=== PATIENT | female | born 1945 | race Caucasian/White ===

== ENCOUNTER 2016-07-10 17:56 | Inpatient (IN) ==
[2016-07-10] MEDS ORDERED: SODIUM CHLORIDE 0.9% 1,000 ML IV STA (18:17)
--- NOTE | 2016-07-10 18:22 | Emergency Department Note ---
Fabien Merino Brittany, am scribing for, and in the presence of, Dima Pond MD 18:17. Dejah Merino James D, MD, personally performed the services described in this documentation, ascribed by Alda Conn in my presence, and it is both accurate and complete 820 . Arrival - Arrival ED Nursing Triage Note: Patient arrived via ems with complaint of abdominal pain and nausea. Patient is alert and disoriented. Patient unable to answer questions. EMS reports this is a change. Patient unable to give any history. Patient was diagnosed with bowel obstruction at other hospital. Mode of Arrival: Stretcher Limitations: No Limitations Source: Patient, RN Notes Reviewed <Dima Pond - Last Filed: 07/10/16 18:52> <Manny Sands - Last Filed: 07/10/16 21:13> - Arrival Chief Complaint: Abdominal / Flank Pain Stated Complaint: bowel obstruction - History of Present Illness HPI Narrative: Patient is a 70 y/o white female presenting to the ED by EMS from [facility] for further evaluation of bowel obstruction. Patient has complaints of abdominal pain and nausea. In room is alert, but disoriented. Per EMS report this is a change in her mental status. History is limited due to patient being a poor historian. From nurse report patient was diagnosed with bowel obstruction at other facility. Dr. Forrester reported to us that patient had some abdominal distention. She reports history of hysterectomy. Brother is in room, states their mother on Friday and while at Home patient became sick. He reports that usually when she gets sick, she begins to have AMS. Patient is unsure as to when her last BM was. Patient's last impaction was around [place] and broken pelvis. She was taken to [facility], nothing was done, and states that now she has just recently been able to ambulate and utilize restroom pretty well till now. Patient has not had bowel movement in a while. Brother states that she has always had problems with bowel movements. Patient is unsure as to what date it is, she states "the year is 2014," and she is unsure as to what month it is. Brother reports Sepsis about a year ago. He reports prior to Friday patient was her norm, able to drive and do housework. No other complaint/pain in the ED. (Alda Conn) Patient is a 70 y/o white female presenting to the ED by EMS from [facility] for further evaluation of bowel obstruction. Patient has complaints of abdominal pain and nausea. In room is alert, but disoriented. Per EMS report this is a change in her mental status. History is limited due to patient being a poor historian. From nurse report patient was diagnosed with bowel obstruction at other facility. Dr. Forrester reported to us that patient had some abdominal distention. She reports history of hysterectomy. Brother is in room, states their mother on Friday and while at Home patient became sick. He reports that usually when she gets sick, she begins to have AMS. Patient is unsure as to when her last BM was. Patient's last impaction was around [place] and broken pelvis. She was taken to [facility], nothing was done, and states that now she has just recently been able to ambulate and utilize restroom pretty well till now. Patient has not had bowel movement in a while. Brother states that she has always had problems with bowel movements. Patient is unsure as to what date it is, she states "the year is 2014," and she is unsure as to what month it is. Brother reports Sepsis about a year ago. He reports prior to Friday patient was her norm, able to drive and do housework. No other complaint/pain in the ED. (Dima Pond) Allergies/Adverse Reactions: Allergies Allergy/AdvReac Type Severity Reaction Status Date / Time levofloxacin [From Levaquin] Allergy RASH Verified 08/15/15 10:12 Isyfyly-Azo-Gta Reductase AdvReac Confusion Verified 08/15/15 10:12 Inhibitor Home Medications: Home Medications Medication Instructions Recorded Confirmed Type Gabapentin [Neurontin] 800 mg PO BID 09/02/14 07/10/16 History Ranitidine Tab [Zantac Tab] 150 mg PO BID 09/02/14 07/10/16 History Estropipate 1 tablet PO DAILY 08/09/15 07/10/16 History Promethazine Tab [Phenergan Tab] 1 tablet PO Q4HR 08/09/15 07/10/16 History cloNIDine TAB [Catapres Tab] 0.1 mg PO BID PRN 08/09/15 07/10/16 History Arformoterol Neb [Brovana] 15 mcg RESP TX RT BID neb 08/20/15 07/10/16 Rx Magnesium Hydroxide Susp [Milk of 30 ml PO DAILY PRN #0 udcup 08/20/15 07/10/16 Rx Magnesia] Pantoprazole Tab [Protonix Tab] 40 mg PO DAILY tablet 08/20/15 07/10/16 Rx ALPRAZolam [Xanax] 1 mg PO TID PRN 07/10/16 07/10/16 History Albuterol Sulfate [Proair HFA] 2 puffs INH Q4H PRN 07/10/16 07/10/16 History Calcium (Carbonate) [Oscal 500] 500 mg PO BID PRN 07/10/16 07/10/16 History Duloxetine HCl [Duloxetine] 30 mg PO BEDTIME 07/10/16 07/10/16 History Furosemide Tab [Lasix Tab] 20 mg PO DAILY PRN 07/10/16 07/10/16 History Ibuprofen 200 mg PO Q8H PRN 07/10/16 07/10/16 History Metformin HCl [Metformin HCl] 500 mg PO BID 07/10/16 07/10/16 History Oxycodone HCl/Acetaminophen 1 each PO QID 07/10/16 07/10/16 History [Oxycodone-Acetaminophen 10-325] Umeclidinium Brm/Vilanterol Tr 1 puff INH DAILY 07/10/16 07/10/16 History [Anoro Ellipta] traZODone [Desyrel] 50 - 100 mg PO BEDTIME PRN 07/10/16 07/10/16 History Review of System - Review of System 12 point system: reviewed and no additional remarkable complaints except as stated - Review of System Respiratory: Present: respiratory distress Gastrointestinal: Present: constipation Neurological: Present: confusion <Dima Pond - Last Filed: 07/10/16 18:52> Medical,Surgical,& Family Hx - Medical History Cardio: History of: CAD, Hypertension No history of: Cardiac Dysrhythmia Comment Only: CHF (daughter thinks so but is not sure) Psychological: History of: Anxiety Disorders, Depression Neurology: History of: Peripheral Neuropathy (diabetic) No history of: Seizures Endocrine: History of: Diabetes Mellitus (NIDDM) Respiratory: History of: Bronchitis, COPD, Obstructive Sleep Apnea, Respiratory Problems (Left lower lobe of LUNG REMOVED) Genitourinary: History of: Recurring Urinary Tract Infections Gastrointestinal: History of: GERD, GI Problems (esophageal strictures requiring dilation in the past before 2005) Musculoskeletal: History of: Back/Neck Problems (treated at pain clinic), Musculoskeletal Problems (arthritis) Other: History of: Anaphylaxis - Surgical History Cardiac Surgeries: Sugical HX of: Cardiac Catheterization (two weeks ago by dr corona) HEENT Surgeries: Surgical HX of: Tonsilectomy & Adenoidectomy Abdominal Surgeries: Surgical HX of: Abdominal Surgery, Appendectomy Reproductive Surgeries: Surgical HX of;: Section, Genitourinary Surgery (bladder mesh tact), Hysterectomy Orthopedic Surgeries: Surgical HX of;: Implanted Devices - Family History Family History: Reports;: Family Cancer (father), Family Diabetes, Family Hypertension, Family Stroke Denies;: Family Heart Disease - Social History Smoking Status: Unknown if ever smoked Frequency of Alcohol Use: None Type of Drug Use: None <Dima Pond - Last Filed: 07/10/16 18:52> Exam <Dima Pond - Last Filed: 07/10/16 18:52> <Manny Sands - Last Filed: 07/10/16 21:13> Vital Signs: Vital Signs Temperature 98.5 F 07/10/16 17:57 Pulse Rate 96 H 07/10/16 19:00 Respiratory Rate 21 07/10/16 19:00 Blood Pressure 142/100 07/10/16 19:00 O2 Sat by Pulse Oximetry 100 07/10/16 19:00 GENERAL: This is a well-nourished well-developed white female chronically ill- appearing in no apparent distress. VITAL SIGNS: Reviewed HEENT: Head is atraumatic and normocephalic. Pupils are equal round react to light. Extraocular movements are intact. Oropharynx is benign with slightly dry mucous membranes. NECK: Neck is soft and supple without tenderness. There are no masses. There is no lymphadenopathy. LUNGS: Lungs are clear to auscultation. Chest rises symmetrically. There is no chest wall tenderness. CV: Heart is regular rate and rhythm without murmurs rubs or gallops. ABDOMEN: Abdomen is soft, minimal generalized tenderness to palpation without rebound or guarding. There are no abdominal abnormal masses palpated. There is no organomegaly. Bowel sounds are present and active. Rectal: Good rectal tone. No masses. Small amount of stool present in the vault which is heme negative. SKIN: Skin is warm and dry. No rash. EXTREMITIES: Patient has full range of motion without tenderness. There is no pedal edema. NEUROLOGIC: Awake, alert, oriented to person. Disoriented to time place. Cranial nerves II through XII are grossly intact. Motor is 4 over 5 in all extremities bilaterally. (Dima Pond) Course <Dima Pond - Last Filed: 07/10/16 18:52> <Manny Sands - Last Filed: 07/10/16 21:13> Course Narrative: Care to Dr. Sands at 7 PM. (Dima Pond) I took over the care of this patient at 1900 on 07/10/2016. The patient presented with an ileus and normal white blood cell count with a hypokalemia that could be related to vomiting at home. She has had issues with her bowel motility when she has any sort of medical issue a causes a pretty profound ileus that she usually has to be treated inpatient for per the family. She did have a CT scan that showed a slight increase growth of her infrarenal abdominal aortic aneurysm but no evidence of rupture and she did not have tenderness that would match with the sort of etiology as source for her pain. Her urinalysis showed some bacteria in the urine but no urine culture was indicated based on this. She had a Moore catheter placed in the ER with concentrated but clear urine output. I discussed her presentation of ileus with the hospitalist who agreed to come see her for admission to stabilize her electrolytes and allow her ileus to resolve prior to discharging her home. (Manny Sands) Results - EKG EKG results: interpreted by ERMD <Dima Pond - Last Filed: 07/10/16 18:52> - Labs CBC & BMP: 07/10/16 19:03 07/10/16 19:04 <Manny Sands - Last Filed: 07/10/16 21:13> - Impressions EKG: Normal sinus rhythm with rate of 92, occasional supraventricular premature complexes, nonspecific ST-T wave changes, normal axis. (Dima Pond) Disposition Case discussed with: patient, patient's family <Dima Pond - Last Filed: 07/10/16 18:52> Time of Disposition: 21:13 <Manny Sands - Last Filed: 07/10/16 21:13> Clinical Impression: Acute mental status change Disposition: Still a Patient Condition: Stable
--- NOTE | 2016-07-10 18:47 | CT Report ---
Referring physician: Dima Pond Exam: CT brain without contrast Date: 07/10/2016 Comparison: 08/17/2015 Reason: Alteration of consciousness Technique: Axial images of the head were obtained without the use of contrast. Total DLP was 914.60 mGy*cm. Findings: No hydrocephalus or midline shift is present. There is no evidence of an acute infarction, recent intracranial hemorrhage or abnormal mass effect. Diffuse atrophy and cerebral hypodensities. Arterial calcifications are noted. The osseous structures appear intact. The mastoid air cells and visualized paranasal sinuses are clear. Impression: No acute intracranial abnormality is identified. Persistent atrophy and microvascular disease. The CT exam was performed using one or more of the following dose reduction techniques: Automated exposure control and adjustment of the mA and/or kV according to patient size. PROCEDURE INTERPRETED AT [facility] DEPARTMENT OF RADIOLOGY Final Report Signed by: Dr. Olga Cody
--- NOTE | 2016-07-10 18:51 | EKG Report ---
Stationary ECG Study [facility] ER Test Date: 07/10/2016 6:50:45 PM Pat Name: SYDNEY VARGAS Department: Room: Gender: F Credit Associate: NESHA : 1945 Requested by: Dima Lewis Order Number: [id number] Reading MD: WELLINGTON VALERIO Intervals [place] Rate: 92 P: 95 HI: 155 QRS: 61 QRSD: 85 T: 70 QT: 397 QTc: 447 Interpretive Statements SINUS RHYTHM WITH OCCASIONAL SUPRAVENTRICULAR PREMATURE COMPLEXES LEFT ATRIAL ENLARGEMENT Electronically Signed On 07-13-16 12:37:55 CDT by WELLINGTON VALERIO [email or web address]
[2016-07-10 19:10] LABS: Apearance,Urine Slightly Hazy (Clear); Bacteria,Urine Occasional /HPF (Few); Bilirubin,Urine Negative (Negative); Blood, Urine Negative (Negative); Glucose,Urine (UA) Negative (Negative); Ketones,Urine 5 mg/dL (Negative); Mucus,Urine Occasional /LPF (Occasional); Nitrite,Urine Negative (Negative); Protein,Urine >=500 MG/DL; RBC,Urine 1 /HPF (0-4); Urine Color Amber (Yellow); Urine Urobilinogen < 2.0 EU/DL (0.2-1.0); WBC,Urine 3 /HPF (0-6)
--- NOTE | 2016-07-10 19:12 | XRay Report ---
Portable chest Date: 07/10/2016 Clinical history: Alteration of consciousness Comparison: 08/17/2015 Technique: Portable AP sitting chest Findings: The heart is small and compressed by the overexpanded lungs. Evidence of bullous emphysema with prior left thoracotomy. Decreased nodular density in the left upper lung zone. Stable mediastinum with degenerative changes. Impression: Bullous emphysema with colonic scarring in patient with prior left thoracotomy. Previously described 22 mm nodular density in the left upper lung zone is no longer identified with certainty on this exam. PROCEDURE INTERPRETED AT [facility] DEPARTMENT OF RADIOLOGY Final Report Signed by: Dr. Olga Cody
--- NOTE | 2016-07-10 19:14 | XRay Report ---
Exam: XR abdomen complete w decub Date: 07/10/2016 6:18 PM Comparison: 07/10/2016 Indication: Generalized abdominal pain Technique:[Supine and left lateral decubitus abdomen] Findings: Persistent gaseous distention of bowel especially the colon with no free air. Diffuse arterial calcifications with persistent infrarenal AAA. Post operative findings in the left hip with fixation screws. Degenerative changes are noted. Impression: Minimally reduced but persistent moderate gaseous distention of the bowel which could be related to ileus, etc. No free air. Diffuse arterial calcifications with infrarenal AAA. Postoperative findings in the left hip with osteopenia. PROCEDURE INTERPRETED AT [facility] DEPARTMENT OF RADIOLOGY Final Report Signed by: Dr. Olga Cody
[2016-07-10 19:20] LABS: Barbiturates Screen,Urine Negative (Negative); Basophils % 0.4 % (0.0-0.8); Benzodiazepines Screen,Urine Positive (Negative); Cannabinoid Screen,Urine Negative (Negative); Eosinophils % 0.4 % (0.00-10.9); Hematocrit 46.2 VOL% (35.7-47.0); Hemoglobin 15.1 GM/DL (12.0-16.0); Immature Granulocytes % 0.5 %; Immature Granulocytes Absolute 0.05 #; Lymphocytes % 21.2 % (21.3-54.2); Mean Corpuscular HGB Conc 32.7 GM/DL (32-36); Mean Corpuscular Hemoglobin 30 PG (27-34); Mean Platelet Volume 9.9 FL (9.6-12.0); Monocytes # 1.1 10*3/uL (0.11-0.8); Monocytes % 11.8 % (1.7-12.7); Neutrophils # 6.1 10*3/uL (1.4-7.4); Neutrophils % 65.7 % (38.7-73.9); Opiate Screen,Urine Positive (Negative); Phencyclidine Screen,Urine Negative (Negative); Platelet Count 228 T/CUMM (130-400); Red Blood Count 4.97 MC/CUMM (3.8-5.5); Red Cell Distribution Width 14.6 % (9.3-17.3); White Blood Count 9.2 T/CUMM (4-12)
[2016-07-10 19:34] LABS: ABG Base Excess 1.9 MMOL/L (-2.5-2.5); ABG HCO3 26.1 MMOL/L (20-26); ABG Oxygen Saturation 97.9 % (95-100); ABG PCO2 40.4 MM HG (35-48); ABG PH 7.424 (7.35-7.45); ABG TCO2 22.9 MMOL/L (23-27); Allen Test Positive
[2016-07-10 19:38] LABS: Ammonia < 10 UMOL/L (11-32)
[2016-07-10 19:43] LABS: PT Patient Result 10.7 SECS; Partial Thromboplastin Time 27.5 SECS (0-40)
[2016-07-10 19:48] LABS: Alanine Aminotransferase 15 U/L (13-56); Albumin 3.8 G/DL (3.4-5.0); Alkaline Phosphatase 167 U/L (45-117); Aspartate Amino Transferase 14 U/L (0-37); Blood Urea Nitrogen 33 MG/DL (7-18); Calcium 8.9 MG/DL (8.5-10.1); Free T4 (Free Thyroxine) 1.25 NG/DL (0.76-1.46); Glucose 118 MG/DL (74-106); Osmolality,Calculated 288.3 MOS/KG (273-304); Potassium 3.1 MMOL/L (3.5-5.1); Sodium 141 MMOL/L (136-145); Total Protein 6.9 G/DL (6.4-8.3); Troponin I Only < 0.015 NG/ML (0.00-0.045)
--- NOTE | 2016-07-10 21:04 | CT Report ---
Referring physician: Manny Sands EXAM: CT abdomen and pelvis with contrast DATE: 07/10/2016 COMPARISON: 04/28/2016, 09/25/2014 REASON: Generalized abdominal pain, bowel obstruction TECHNIQUE: Axial images of the abdomen and pelvis were obtained after administration of 100 cc of Omnipaque 350 IV contrast. Coronal and sagittal reformatted images were also provided. Total DLP is 619.4 mGy*cm. FINDINGS: Significant bullous emphysema with chronic scarring and minimal atelectasis. Patient was unable to raise arms which produces streak artifact. Elongation of the right lobe of the liver with no masses, dilated ducts, or calcified gallstones. The spleen, and adrenal glands are stable in appearance. Persistent atrophy of the pancreas with no significant dilatation of the pancreatic duct. Cortical scarring in the kidneys with renal cysts. No renal or ureteral calculi are identified. Calcification in the wall of the abdominal aorta. Atheromatous plaque formation with infrarenal AAA measuring 46 mm compared to 43 mm on the previous exam. No evidence of leakage or adjacent adenopathy. Minimal fluid in the stomach and small bowel which is not significantly distended. Jlwv-nu-xzvagqzv distention of the colon with increased fecal material. Limited evaluation of bowel without oral contrast but there is no evidence of definite diverticulitis. Suboptimal demonstration of the appendix with prior hysterectomy with pelvic relaxation. Decompressed urinary bladder with Moore catheter. Postoperative findings in the left hip with interval callus formation and deformity of the previously noted fracture of the left superior pubic ramus/acetabulum and inferior pubic ramus. Degenerative changes are noted with minimal chronic-appearing compression T12. Additional callus formation in the sacral with progressive deformity of the sacrum with prior sacral fracture. Osteopenia with levoscoliosis. IMPRESSION: Significant bullous emphysema with chronic scarring and atelectasis. Elongation of the right lobe of the liver. Atrophic pancreas with cortical scarring in the kidneys and renal cysts. 46 mm infrarenal AAA which measures 43 mm on the previous exam. Significant atheromatous plaque formation with no definite leakage. Fluid in the stomach and small bowel which could be related to enteritis. No significant dilatation of small bowel. Ivqv-sj-pjnfqyri gaseous distention of the colon which could be related to ileus, etc. There is limited evaluation of the bowel without oral contrast. Moore catheter in urinary bladder. Chronic T12, left pubic bones/acetabulum, sacrum, and left hip fractures. Progressive deformity of the sacrum with callus formation. Prior hysterectomy with pelvic relaxation. The CT exam was performed using one or more of the following dose reduction techniques: Automated exposure control and adjustment of the mA and/or kV according to patient size. PROCEDURE INTERPRETED AT [facility] DEPARTMENT OF RADIOLOGY Final Report Signed by: Dr. Olga Cody
[2016-07-10] MEDS ORDERED: POTASSIUM CHLORIDE RIDER 100 ML IV ONE ×2 (21:13→21:59)
[2016-07-10] MEDS: POTASSIUM CHLORIDE RIDER 10 MEQ in PREMIX 1 EACH IV SCH (21:22)
--- NOTE | 2016-07-10 22:24 | Hospitalist History & Physical ---
Assessment and Plan (1) Enteritis Status: Acute Current Visit: Yes (2) Nausea Status: Acute Current Visit: No (3) Ileus Status: Resolved Current Visit: No (4) Gastroenteritis Status: Acute Current Visit: No (5) Poorly-controlled hypertension Status: Chronic Current Visit: No (6) Confusion Status: Resolved Current Visit: No (7) Word finding difficulty Status: Resolved Assessment and plan: Our plans for this patient 1. Admit the patient to our service 2. Gentle hydration through the night with electrolyte correction 3. Repeat electrolytes in the morning 4. Repeat KUB in the morning 5. Keep n.p.o. for now but advanced diet slowly in the morning if possible 6. Continue home meds as appropriate Current Visit: No (8) Aneurysm of infrarenal abdominal aorta Status: Acute Assessment and plan: We will get a consult Dr. Crowell for his evaluation of this finding. Family and patient did not know this existed Current Visit: Yes History of Present Illness Chief complaint: Nausea vomiting abdominal pain History of present illness: Ms. Shea is a 70 year old female with past medical history significant for COPD hypertension chronic pain chronic constipation who was in her normal state of health of the past few days. Patient got sick really nauseated and threw up quite a few times. She seems like when she gets sick that she gets confused according to her brother. Usually it is urinary tract infection although her urine looks clean on this visit. Overall patient is generally a poor historian. She was diagnosed with a bowel obstruction at other facility. Her mother a week ago and at the home although were trying to plan the patient became really sick. Patient unsure as to when her last bowel movement was. She did have an issue with fecal impaction in the past. She is only been recently able to ambulate. She has not had any narcotics during this time. Patient does seem confused on questioning not real familiar about where she is but she did note that she was a [place] but she thought the year was 2014. Overall patient is awake and does not look toxic. Although diagnosed with a bowel obstruction at the outside facility are CT scan was more consistent with an ileus. Patient had some electrolyte abnormalities which are being corrected in the emergency room I was consulted to admit her Home Medications Medication Instructions Recorded Confirmed Type Gabapentin [Neurontin] 800 mg PO BID 09/02/14 07/10/16 History Ranitidine Tab [Zantac Tab] 150 mg PO BID 09/02/14 07/10/16 History Estropipate 1 tablet PO DAILY 08/09/15 07/10/16 History Promethazine Tab [Phenergan Tab] 1 tablet PO Q4HR 08/09/15 07/10/16 History cloNIDine TAB [Catapres Tab] 0.1 mg PO BID PRN 08/09/15 07/10/16 History Arformoterol Neb [Brovana] 15 mcg RESP TX RT BID neb 08/20/15 07/10/16 Rx Pantoprazole Tab [Protonix Tab] 40 mg PO DAILY tablet 08/20/15 07/10/16 Rx ALPRAZolam [Xanax] 1 mg PO TID PRN 07/10/16 07/10/16 History Albuterol Sulfate [Proair HFA] 2 puffs INH Q4H PRN 07/10/16 07/10/16 History Duloxetine HCl [Duloxetine] 30 mg PO BEDTIME 07/10/16 07/10/16 History Furosemide Tab [Lasix Tab] 20 mg PO DIRECTED PRN 07/10/16 07/10/16 History Metformin HCl [Metformin HCl] 500 mg PO BID 07/10/16 07/10/16 History Oxycodone HCl/Acetaminophen 1 each PO QID 07/10/16 07/10/16 History [Oxycodone-Acetaminophen 10-325] Umeclidinium Brm/Vilanterol Tr 1 puff INH DAILY 07/10/16 07/10/16 History [Anoro Ellipta] traZODone [Desyrel] 50 - 100 mg PO BEDTIME PRN 07/10/16 07/10/16 History Allergies Allergy/AdvReac Type Severity Reaction Status Date / Time levofloxacin [From Levaquin] Allergy RASH Verified 07/10/16 21:23 Qkkyvzt-Lek-Iwn Reductase AdvReac Confusion Verified 07/10/16 21:23 Inhibitor Medical,Surgical,& Family Hx - Medical History Cardio: History of: CAD, Hypertension No history of: Cardiac Dysrhythmia Comment Only: CHF (daughter thinks so but is not sure) Psychological: History of: Anxiety Disorders, Depression Neurology: History of: Peripheral Neuropathy (diabetic) No history of: Seizures Endocrine: History of: Diabetes Mellitus (NIDDM) Respiratory: History of: Bronchitis, COPD, Obstructive Sleep Apnea, Respiratory Problems (Left lower lobe of LUNG REMOVED) Genitourinary: History of: Recurring Urinary Tract Infections Gastrointestinal: History of: GERD, GI Problems (esophageal strictures requiring dilation in the past before 2005) Musculoskeletal: History of: Back/Neck Problems (treated at pain clinic), Musculoskeletal Problems (arthritis) Other: History of: Anaphylaxis - Surgical History Cardiac Surgeries: Sugical HX of: Cardiac Catheterization (two weeks ago by dr corona) HEENT Surgeries: Surgical HX of: Tonsilectomy & Adenoidectomy Abdominal Surgeries: Surgical HX of: Abdominal Surgery, Appendectomy Reproductive Surgeries: Surgical HX of;: Section, Genitourinary Surgery (bladder mesh tact), Hysterectomy Orthopedic Surgeries: Surgical HX of;: Implanted Devices - Family History Family History: Reports;: Family Cancer (father), Family Diabetes, Family Hypertension, Family Stroke Denies;: Family Heart Disease - Social History Smoking Status: Unknown if ever smoked Frequency of Alcohol Use: None Type of Drug Use: None 12 point system: reviewed and no additional remarkable complaints except as stated Exam - Constitutional Vitals: Period Temp Pulse Resp BP Sys/Almodovar Pulse Ox Last 24 Hr 98.5 F-98.5 F 90-101 16-21 131-142/86-100 96-100 General appearance: normal weight - Head Head exam: Present: normal inspection - Eye Eye exam: Present: EOMI Pupils: Present: MAIKOL - ENT ENT exam: Present: normal exam - Neck Neck exam: Present: normal inspection - Respiratory Respiratory exam: Present: clear to auscultation bilaterally - Cardiovascular Cardiovascular exam: Present: regular rate and rhythm - GI/Abdominal GI/Abdominal exam: Present: normal bowel sounds - Extremities Exam Extremities exam: Present: normal inspection - Back Exam Back exam: Present: normal inspection - Neurological Exam Neurological exam: Present: alert - Psychiatric Psychiatric exam: Present: normal affect - Skin Skin exam: Present: normal color Results - Labs CBC & BMP: 07/10/16 19:03 07/10/16 19:04 Labs: Patient had a CT scan of her abdomen while in our hospital ER. He displayed a infrarenal aortic aneurysm that was at 46 mm today and previously been 43 mm. She and her family were not aware that she had this. There was fluid in the stomach and the small bowel which were could be related enteritis no significant dilation of the small bowel mild to moderate gaseous distention of the colon which could be related to an ileus
[2016-07-10] MEDS ORDERED: ONDANSETRON 4 MG/2 ML VIAL IV PRN (22:37)
[2016-07-10] MEDS ORDERED: ALPRAZolam 0.5 MG TABLET PO PRN (22:52)
[2016-07-10] MEDS ORDERED: ALBUTEROL 2.5 MG/3 ML NEB RESP TX PRN (22:52)
[2016-07-10] MEDS ORDERED: cloNIDine 0.1 MG TABLET PO PRN (22:52)
[2016-07-11] MEDS: SODIUM CHLORIDE 0.45% 1,000 ML IV SCH ×2 (01:00→15:38)
[2016-07-11] MEDS: cefTRIAXone 1,000 MG in SODIUM CHLORIDE 0.9% 100 ML IV SCH (01:30)
[2016-07-11] MEDS: POTASSIUM CHLORIDE RIDER 10 MEQ in PREMIX 1 EACH IV SCH ×5 (04:16→09:31)
[2016-07-11 06:52] LABS: Basophils % 0.4 % (0.0-0.8); Eosinophils # 0.1 10*3/uL (0.0-0.87); Eosinophils % 1.3 % (0.00-10.9); Hematocrit 40.6 VOL% (35.7-47.0); Hemoglobin 13.4 GM/DL (12.0-16.0); Immature Granulocytes % 0.3 %; Immature Granulocytes Absolute 0.03 #; Lymphocytes # 1.9 10*3/uL (1.4-4.0); Mean Corpuscular Hemoglobin 31 PG (27-34); Mean Corpuscular Volume 92.3 FL (87-102); Mean Platelet Volume 10.1 FL (9.6-12.0); Monocytes % 9.8 % (1.7-12.7); Neutrophils # 6.9 10*3/uL (1.4-7.4); Neutrophils % 69.2 % (38.7-73.9); Platelet Count 223 T/CUMM (130-400); Red Cell Distribution Width 14.6 % (9.3-17.3)
[2016-07-11] MEDS: ARFORMOTEROL 15 MCG/2 ML NEB RESP TX SCH ×2 (07:26→19:40)
[2016-07-11 07:27] LABS: Albumin 3.5 G/DL (3.4-5.0); Bilirubin,Total 0.9 MG/DL (0.2-1.0); Calcium 8.8 MG/DL (8.5-10.1); Osmolality,Calculated 291.8 MOS/KG (273-304); Potassium 3.4 MMOL/L (3.5-5.1); Total Protein 6.5 G/DL (6.4-8.3)
[2016-07-11] MEDS ORDERED: NON-FORMULARY MEDICATION (Umeclidinium Brm/Vilanterol Tr [Anoro Ellipta] 1 PUFF) INH SCH (09:00)
--- NOTE | 2016-07-11 09:06 | Vascular Surgery Consult Note ---
History of Present Illness Chief complaint: AAA, asymptomatic History of present illness: Ms. Shea is a 70 year old female Mrs. Shea is a 70-year-old woman admitted with ileus and urinary tract infection. During her evaluation with CT scanning she is found to have approximately 4.8 cm infrarenal abdominal aortic aneurysm which was present but smaller on a CT scan done in 2015. It appears to be completely asymptomatic but certainly is approaching the stage where endovascular repair should be considered. The anatomy appears to be favorable for endovascular repair but certainly her current medical condition makes this not appropriate at this time. I think will be very safe to allow her to recover from her current illness we certainly would like to have full cardiac and pulmonary clearance before attempting surgery. I will ask personnel to give her the general [facility] patient information booklet on aortic aneurysms and discuss this further with her tomorrow and with her family as well and I will plan to follow her in the office. It may be appropriate to go ahead and consult pulmonary medicine in preparation for the repair. It appears that she saw Dr. Hall earlier this year and had cardiac catheterization so we should also at that time start considering her cardiac status for this repair. Home Medications Medication Instructions Recorded Confirmed Type Gabapentin [Neurontin] 800 mg PO BID 09/02/14 07/10/16 History Ranitidine Tab [Zantac Tab] 150 mg PO BID 09/02/14 07/10/16 History Estropipate 1 tablet PO DAILY 08/09/15 07/10/16 History Promethazine Tab [Phenergan Tab] 1 tablet PO Q4HR 08/09/15 07/10/16 History cloNIDine TAB [Catapres Tab] 0.1 mg PO BID PRN 08/09/15 07/10/16 History Arformoterol Neb [Brovana] 15 mcg RESP TX RT BID neb 08/20/15 07/10/16 Rx Pantoprazole Tab [Protonix Tab] 40 mg PO DAILY tablet 08/20/15 07/10/16 Rx ALPRAZolam [Xanax] 1 mg PO TID PRN 07/10/16 07/10/16 History Albuterol Sulfate [Proair HFA] 2 puffs INH Q4H PRN 07/10/16 07/10/16 History Duloxetine HCl [Duloxetine] 30 mg PO BEDTIME 07/10/16 07/10/16 History Furosemide Tab [Lasix Tab] 20 mg PO DIRECTED PRN 07/10/16 07/10/16 History Metformin HCl [Metformin HCl] 500 mg PO BID 07/10/16 07/10/16 History Oxycodone HCl/Acetaminophen 1 each PO QID 07/10/16 07/10/16 History [Oxycodone-Acetaminophen 10-325] Umeclidinium Brm/Vilanterol Tr 1 puff INH DAILY 07/10/16 07/10/16 History [Anoro Ellipta] traZODone [Desyrel] 50 - 100 mg PO BEDTIME PRN 07/10/16 07/10/16 History Allergies Allergy/AdvReac Type Severity Reaction Status Date / Time levofloxacin [From Levaquin] Allergy RASH Verified 07/10/16 21:23 Fuodgye-Fle-Ouj Reductase AdvReac Confusion Verified 07/10/16 21:23 Inhibitor Medical,Surgical,& Family Hx - Medical History Cardio: History of: CAD, Hypertension No history of: Cardiac Dysrhythmia Comment Only: CHF (daughter thinks so but is not sure) Psychological: History of: Anxiety Disorders, Depression Neurology: No history of: Peripheral Neuropathy, Seizures Endocrine: History of: Diabetes Mellitus (NIDDM) Respiratory: History of: Bronchitis, COPD, Obstructive Sleep Apnea, Respiratory Problems (Left lower lobe of LUNG REMOVED) Genitourinary: History of: Recurring Urinary Tract Infections Gastrointestinal: History of: GERD, GI Problems (esophageal strictures requiring dilation in the past before 2005) Musculoskeletal: History of: Back/Neck Problems (treated at pain clinic), Musculoskeletal Problems (arthritis) Other: History of: Anaphylaxis No history of: Anesthesia Reactions - Surgical History Cardiac Surgeries: Sugical HX of: Cardiac Catheterization (two weeks ago by dr hall) HEENT Surgeries: Surgical HX of: Tonsilectomy & Adenoidectomy Abdominal Surgeries: Surgical HX of: Abdominal Surgery, Appendectomy Reproductive Surgeries: Surgical HX of;: Section, Genitourinary Surgery (bladder mesh tact), Hysterectomy Orthopedic Surgeries: Surgical HX of;: Implanted Devices - Family History Family History: Reports;: Family Cancer (father), Family Diabetes, Family Hypertension, Family Stroke Denies;: Family Heart Disease - Social History Smoking Status: Former smoker Frequency of Alcohol Use: None Type of Drug Use: None Exam - Constitutional Vitals: Period Temp Pulse Resp BP Sys/Almodovar Pulse Ox Last 24 Hr 97.3 F-98.4 F 90-94 18-22 143-180/96-110 90-98 Quality Measures - Stroke Symptom Onset Unknown: No Results - Labs CBC & BMP: 07/11/16 06:39 07/11/16 06:39
[2016-07-11] MEDS: GABAPENTIN 400 MG CAPSULE PO SCH ×2 (09:44→20:43)
[2016-07-11] MEDS: ESTROPIPATE 0.75 MG TABLET PO SCH (09:45)
[2016-07-11] MEDS: ENOXAPARIN 40 MG/0.4 ML SYRINGE SUBCUT SCH (09:45)
[2016-07-11] MEDS: FAMOTIDINE 20 MG TABLET PO SCH ×2 (09:45→20:43)
--- NOTE | 2016-07-11 10:29 | XRay Report ---
XR KUB Clinical Information: Abdominal Pain ileus Comparison: 07/10/2016 Findings: Mild generalized small bowel and colonic gaseous distention appears slightly decreased in prominence when compared to prior. There is no free air identified. Scattered fecal material is noted throughout colon, which is otherwise nondilated. Calcific atherosclerotic plaque within the abdominal aorta, which appears slightly enlarged, is similar to prior. Abnormal focal soft tissue masses or calcific densities are identified in the abdomen or pelvis. Lung bases appear predominantly clear. There is no acute osseous abnormality. No suspicious osseous lesions are identified. Postsurgical changes of the left proximal femur are partially imaged. Impression: No acute radiographic abnormality in the abdomen. Mild gaseous distention of small bowel and colon which appears slightly decreased from prior may represent continued mild ileus changes PROCEDURE INTERPRETED AT [facility] DEPARTMENT OF RADIOLOGY Final Report Signed by: Paco Olivas
[2016-07-11] MEDS ORDERED: POTASSIUM CHLORIDE RIDER 10 MEQ in PREMIX 1 EACH IV PRN (11:04)
--- NOTE | 2016-07-11 11:10 | Hospitalist Progress Note ---
Assessment and Plan (1) Hypokalemia Status: Acute Current Visit: No (2) CAD (coronary artery disease) Status: Chronic Current Visit: No (3) Nausea and vomiting in adult Status: Acute Current Visit: No (4) Ileus Status: Acute Current Visit: No (5) Gastroenteritis Status: Acute Current Visit: No (6) Diarrhea Status: Acute Current Visit: Yes Hospitalist: Subjective Interval history: Patient reports diarrhea today. No nausea or vomiting since admission. She was evaluated by vascular surgery for abdominal aorta. Will continue abx for uti. Will order clear liquid diet as tolerated Exam - Constitutional Vitals: Period Temp Pulse Resp BP Sys/Almodovar Pulse Ox Last 24 Hr 97.3 F-98.4 F 90-94 18-22 143-180/96-110 90-98 General appearance: normal weight - Head Head exam: Present: normocephalic, atraumatic - Eye Eye exam: Present: EOMI Pupils: Present: MAIKOL - ENT ENT exam: Present: normal exam - Neck Neck exam: Present: normal inspection. Absent: tenderness - Respiratory Respiratory exam: Present: clear to auscultation bilaterally - Cardiovascular Cardiovascular exam: Present: regular rate and rhythm - GI/Abdominal GI/Abdominal exam: Present: normal bowel sounds, soft. Absent: guarding, tenderness, rebound - Extremities Exam Extremities exam: Present: normal inspection - Back Exam Back exam: Present: normal inspection - Neurological Exam Neurological exam: Present: alert - Psychiatric Psychiatric exam: Present: normal affect, normal mood - Skin Skin exam: Present: warm, intact Results - Labs CBC & BMP: 07/11/16 06:39 07/11/16 06:39 Quality Measures - Stroke Symptom Onset Unknown: No
[2016-07-11] MEDS ORDERED: DULoxetine 30 MG CAPSULE PO SCH (21:00)
[2016-07-12] MEDS: ARFORMOTEROL 15 MCG/2 ML NEB RESP TX SCH (07:31)
[2016-07-12 07:44] LABS: Calcium 8.3 MG/DL (8.5-10.1); Magnesium 1.9 MG/DL (1.8-2.4); Osmolality,Calculated 281.3 MOS/KG (273-304); Potassium 3.3 MMOL/L (3.5-5.1)
[2016-07-12] MEDS: ENOXAPARIN 40 MG/0.4 ML SYRINGE SUBCUT SCH (09:33)
[2016-07-12] MEDS: FAMOTIDINE 20 MG TABLET PO SCH (09:33)
[2016-07-12] MEDS: ESTROPIPATE 0.75 MG TABLET PO SCH (09:33)
[2016-07-12] MEDS: GABAPENTIN 400 MG CAPSULE PO SCH (09:33)
[2016-07-12] MEDS: POTASSIUM CHLORIDE 20 MEQ TABLET PO PRN ×3 (09:34→13:23)
[2016-07-12] MEDS: cefTRIAXone 1,000 MG in SODIUM CHLORIDE 0.9% 100 ML IV SCH (09:35)
--- NOTE | 2016-07-12 11:24 | Discharge Summary ---
Hospital Course - Hospital Course Hospital Course: 70 y/o WF admitted with gastroenteritis and urinary tract infection. She was started on rocephin. CT of abdomen showed a 4.8 cm infrarenal abdominal aortic aneurysm. She was evaluated by vascular surgery, Dr. Crowell, with plans for outpatient follow-up in one month. Urine culture grew Enterococcus faecalis. She will be discharged on macrobid. She has now reached maximum benefit of inpatient stay and will be discharged home. - Time spent with patient Time with patient DS: Less than 30 minutes Diagnosis - Discharge Diagnosis (1) Hypokalemia Status: Resolved (2) CAD (coronary artery disease) Status: Chronic (3) Nausea and vomiting in adult Status: Acute (4) Ileus Status: Resolved (5) Gastroenteritis Status: Resolved (6) Diarrhea Status: Resolved Specialty Discharge - Follow Up or Referrals Follow up with: Andry Crowell MD [Physician] - 1 Month Discharge Plan - Discharge Data Condition at Discharge: Stable Discharge Diet: advance to your usual diet Activity: resume usual activities as tolerated Hygiene: no restrictions Weight Bearing at Discharge: weight bear as tolerated Driving: no restrictions Contact your physician if you experience:: fever over 101, Shortness of breath - Discharge Medications New Nitrofurantoin Macro/[place] [Macrobid] 100 mg PO BID #6 capsule Continue Ranitidine Tab [Zantac Tab] 150 mg PO BID Gabapentin [Neurontin] 800 mg PO BID Promethazine Tab [Phenergan Tab] 1 tablet PO Q4HR Estropipate 1 tablet PO DAILY cloNIDine TAB [Catapres Tab] 0.1 mg PO BID PRN PRN Reason: BP>180 Arformoterol Neb [Brovana] 15 mcg RESP TX RT BID neb Pantoprazole Tab [Protonix Tab] 40 mg PO DAILY tablet Metformin HCl 500 mg PO BID traZODone [Desyrel] 50 - 100 mg PO BEDTIME PRN PRN Reason: Insomnia Umeclidinium Brm/Vilanterol Tr [Anoro Ellipta] 1 puff INH DAILY Oxycodone HCl/Acetaminophen [Oxycodone-Acetaminophen 10-325] 1 each PO QID Duloxetine HCl [Duloxetine] 30 mg PO BEDTIME Albuterol Sulfate [Proair HFA] 2 puffs INH Q4H PRN PRN Reason: Shortness Of Breath/Wheezing ALPRAZolam [Xanax] 1 mg PO TID PRN PRN Reason: Anxiety Furosemide Tab [Lasix Tab] 20 mg PO DIRECTED PRN PRN Reason: Edema - Follow Up or Referral - Forms/Instructions Exam - Constitutional Vitals: Period Temp Pulse Resp BP Sys/Almodovar Pulse Ox Last 24 Hr 97.2 F-98.4 F 80-95 16-20 114-141/68-96 94-100 General appearance: normal weight - Head Head exam: Present: normocephalic, atraumatic - Eye Eye exam: Present: EOMI Pupils: Present: MAIKOL - ENT ENT exam: Present: normal exam - Neck Neck exam: Present: normal inspection - Respiratory Respiratory exam: Present: clear to auscultation bilaterally - Cardiovascular Cardiovascular exam: Present: regular rate and rhythm - GI/Abdominal GI/Abdominal exam: Present: normal bowel sounds, soft. Absent: tenderness, rebound - Extremities Exam Extremities exam: Present: normal inspection - Back Exam Back exam: Present: normal inspection - Neurological Exam Neurological exam: Present: alert, oriented X3 - Psychiatric Psychiatric exam: Present: normal affect, normal mood - Skin Skin exam: Present: warm, intact Discharge Results Labs on day of discharge: Labs from last 24 hours 07/12/16 07/12/16 07/11/16 08:17 07:07 17:55 Sodium 141 Potassium 3.3 L Chloride 104 Carbon Dioxide 25 Anion Gap 15.3 H BUN 14 Creatinine 0.60 GFR Calculation 91 BUN/Creatinine Ratio 23.00 H Glucose 102 POC Glucose 139 H 87 Calculated Osmolality 281.3 Calcium 8.3 L Magnesium 1.9 DS: Provider Date of admission: 07/10/16 22:30 Primary care physician: . No PCP Attending physician on admission: Miko Ferreira MD Consults: 07/10/16 22:37 Consult to Physician [CONS] Routine Comment: AAA Consulting Provider: Andry Crowell When should Consulting Provider be notified: In am 07/10/16 23:55 Consult to Pharmacy [CONS] Routine Reason for Pharmacy Consult: Adjust Meds Renal Funct Discharging clinician: Miko Ferreira MD
[2016-07-12 11:56] VITALS: BP 121/79
[2016-07-12] MEDS: SODIUM CHLORIDE 0.45% 1,000 ML IV SCH (14:58)
== END 2016-07-12 14:30 | disposition home health service (06) | DRG 389 ==
LOC: EDBD → EDUNIT# → N.ED 17:56 → N.EDINP 22:30 → N.2E 23:38
PROVIDERS: ADMIT Internal Medicine; ATTEND Internal Medicine

== ENCOUNTER 2016-10-22 06:18 | Inpatient (IN) ==
--- NOTE | 2016-10-17 10:59 | EKG Report ---
Stationary ECG Study [facility] Test Date: 10/17/2016 10:59:41 AM Pat Name: SYDNEY VARGAS Department: Room: Gender: F Global Coordinator: ARCHANA 10-22-16 : 1945 Requested by: Andry Crowell Order Number: [id number] Reading MD: ATTILA RAO Intervals [place] Rate: 103 P: 95 NE: 152 QRS: 82 QRSD: 75 T: 94 QT: 343 QTc: 402 Interpretive Statements SINUS TACHYCARDIA RIGHT ATRIAL ENLARGEMENT Electronically Signed On 10-17-16 15:43:51 CDT by ATTILA RAO [email or web address]
[2016-10-17 11:17] LABS: Basophils % 0.3 % (0.0-0.8); Eosinophils # 0.4 10*3/uL (0.0-0.87); Eosinophils % 4.2 % (0.00-10.9); Hematocrit 41.1 VOL% (35.7-47.0); Hemoglobin 13.2 GM/DL (12.0-16.0); Immature Granulocytes % 0.6 %; Immature Granulocytes Absolute 0.05 #; Lymphocytes # 1.5 10*3/uL (1.4-4.0); Lymphocytes % 17.3 % (21.3-54.2); Mean Corpuscular HGB Conc 32.1 GM/DL (32-36); Mean Corpuscular Hemoglobin 31 PG (27-34); Mean Corpuscular Volume 96.7 FL (87-102); Mean Platelet Volume 8.9 FL (9.6-12.0); Monocytes # 0.7 10*3/uL (0.11-0.8); Monocytes % 8.2 % (1.7-12.7); Neutrophils % 69.4 % (38.7-73.9); Platelet Count 248 T/CUMM (130-400); Red Blood Count 4.25 MC/CUMM (3.8-5.5); Red Cell Distribution Width 14.6 % (9.3-17.3); White Blood Count 8.7 T/CUMM (4-12)
[2016-10-17 11:49] LABS: Alanine Aminotransferase 20 U/L (13-56); Albumin 3.5 G/DL (3.4-5.0); Alkaline Phosphatase 150 U/L (45-117); Aspartate Amino Transferase 11 U/L (0-37); Bilirubin,Total < 0.39 MG/DL (0.2-1.0); Blood Urea Nitrogen 24 MG/DL (7-18); Calcium 8.8 MG/DL (8.5-10.1); Glucose 116 MG/DL (74-106); Osmolality,Calculated 283.4 MOS/KG (273-304); Sodium 140 MMOL/L (136-145); Total Protein 6.5 G/DL (6.4-8.3)
[~2016-10-22 06:18] MED LIST: ceFAZolin 1,000 MG VIAL ONE
[2016-10-22] MEDS ORDERED: FAMOTIDINE 20 MG TABLET PO ONE (06:52)
[2016-10-22] MEDS ORDERED: LORazepam 1 MG TABLET PO ONE (06:52)
--- NOTE | 2016-10-22 06:52 | History and Physical Update ---
History and Physical Update - History and Physical H&P was reviewed, the patient examined and there: are no changes in the patients condition since last H&P was completed. (Patient mentioned that she gets in heart failure easily with IV fluids so we will be extra cautious fluids and I will plan on her staying in the intensive care unit tonight)
[2016-10-22] MEDS: LACTATED RINGERS 1,000 ML IV SCH (07:00)
[2016-10-22] MEDS ORDERED: HEPARIN/NACL 0.9% 2 UNITS/ML 3,000 ML IV ONE (07:17)
[2016-10-22] MEDS ORDERED: LORazepam 1 MG TABLET ONE (07:32)
[2016-10-22] MEDS ORDERED: FAMOTIDINE 20 MG TABLET ONE (07:32)
[2016-10-22] MEDS ORDERED: HYDROCORTISONE 100 MG VIAL ONE (07:45)
[2016-10-22] MEDS ORDERED: HEPARIN 10,000 UNIT/10 ML VIAL ONE (07:45)
[2016-10-22] MEDS ORDERED: NITROGLYCERIN 50 MG/250 ML BOTTLE IV ONE (07:45)
[2016-10-22] MEDS ORDERED: PHENYLEPHRINE 20 MG/250 ML PREMIX IV ONE (07:45)
[2016-10-22] MEDS ORDERED: LIDOCAINE 1% 5 ML VIAL ONE (07:45)
[2016-10-22] MEDS ORDERED: ROCURONIUM 100 MG/10 ML VIAL IV ONE (07:45)
[2016-10-22] MEDS ORDERED: ETOMIDATE 20 MG/10 ML VIAL IV ONE (07:45)
[2016-10-22] MEDS ORDERED: ONDANSETRON 4 MG/2 ML VIAL ONE (07:45)
[2016-10-22] MEDS ORDERED: LACTATED RINGERS 1,000 ML IV SCH (08:00)
[2016-10-22] MEDS ORDERED: oxyCODONE/ACETAMINOPHEN 5-325 MG TABLET PO PRN (10:31)
[2016-10-22] MEDS ORDERED: HYDROmorphone 2 MG/1 ML VIAL IV PRN (10:31)
[2016-10-22] MEDS ORDERED: ALPRAZolam 0.5 MG TABLET PO PRN (10:35)
[2016-10-22] MEDS ORDERED: PROMETHAZINE 25 MG TABLET PO PRN (10:35)
[2016-10-22] MEDS ORDERED: FUROSEMIDE 20 MG TABLET PO PRN (10:35)
--- NOTE | 2016-10-22 10:57 | Anesthesia Post-Op ---
Anesthesia Post OP - Post Ansesthetic Evaluation Patient seen in post op: Yes Resp: within normal limits CV: within normal limits Mental: within normal limits Temp: within normal limits Xdgy-Dl-Lkrgkwikh: within normal limits Nausea and Vomiting: within normal limits Pain: within normal limits
[2016-10-22] MEDS ORDERED: ONDANSETRON 4 MG/2 ML VIAL IV PRN (11:02)
[2016-10-22] MEDS: HYDROmorphone 2 MG/1 ML VIAL IV PRN ×2 (11:10→11:15)
[2016-10-22] MEDS ORDERED: MIDAZOLAM 2 MG/2 ML VIAL ONE (11:11)
[2016-10-22] MEDS ORDERED: fentaNYL 100 MCG/2 ML VIAL ONE (11:11)
[2016-10-22] MEDS ORDERED: SEVOFLURANE 1 UNIT/15 MINUTE INH ONE (11:11)
[2016-10-22] MEDS ORDERED: ePHEDrine 50 MG/ML AMP ONE (11:12)
[2016-10-22] MEDS ORDERED: LACTATED RINGERS 1,000 ML IV ONE (11:12)
[2016-10-22] MEDS ORDERED: SODIUM CHLORIDE 0.9% 1,000 ML IV ONE (11:12)
[2016-10-22 11:15] LABS: Hematocrit 35.3 VOL% (35.7-47.0); Hemoglobin 11.3 GM/DL (12.0-16.0)
[2016-10-22] MEDS ORDERED: HYDROmorphone 2 MG/1 ML VIAL ONE (11:17)
[2016-10-22] MEDS ORDERED: SODIUM CHLORIDE 0.9% 1,000 ML IV SCH (11:30)
[2016-10-22] MEDS: DEXTROSE 5% NACL 0.45% 1,000 ML IV SCH (12:06)
[2016-10-22 12:33] LABS: Calcium 8.4 MG/DL (8.5-10.1); Osmolality,Calculated 284.4 MOS/KG (273-304); Potassium 4.6 MMOL/L (3.5-5.1)
[2016-10-22] MEDS: predniSONE 5 MG TABLET PO SCH (13:00)
--- NOTE | 2016-10-22 13:06 | Interventional Radiology Rpt ---
[place] [id number], US guide vascular access, US guide vascular access Indication: Abdominal aortic aneurysm. PERCUTANEOUS ENDOVASCULAR ABDOMINAL AORTIC ANEURYSM REPAIR Description: A formal timeout was performed. Patient was placed under general endotracheal anesthesia. Maximum sterile barrier technique was instituted. The right common femoral artery was assessed with ultrasound and shown to be patent and compressible with mild calcified plaque deposition noted. Taking care to avoid plaque, a micropuncture needle was advanced directly into the artery at the 12:00 position using sonographic guidance. Captured sonographic image documents the needle placement. Needle was removed over wire. 2 Perclose devices were sequentially advanced and preliminarily deployed, with both sutures set aside for the end of the case. A 6 [place] sheath was then positioned. Similar evaluation of left common femoral artery with ultrasound showed it to be patent and compressible and relatively disease free. A micropuncture needle was advanced directly into the artery at the 12:00 position and a captured sonographic image documenting the needle placement. Again, the needle was removed over wire and 2 Perclose devices were sequentially advanced and preliminarily deployed, setting aside both sutures. A 6 [place] sheath was then positioned. Heparin 5000 units was administered. From the left groin, flush catheter was advanced into the suprarenal abdominal aorta. From the right groin, an Endologix Ovation IX 34 mm aortic body was advanced. An abdominal aortogram was performed confirming the position of the left renal artery takeoff. The catheter was then withdrawn and the distal aorta. The suprarenal fixation component of the aortic body was then partially deployed, the position of the device suggested slightly, in the remainder of suprarenal fixation deployed without difficulty. The remainder of the body was deployed. Polymer was then injected into the fill port, intermittently observed under fluoroscopic observation. From the left groin, the contralateral gate was accessed using a Glidewire and Tegtmeyer catheter. Retrograde angiogram of the left hypogastric artery was then performed through the existing sheath. Catheter was removed over wire and a 14 x 140 mm iliac stent graft was advanced, positioned at the flow divider, and deployed without difficulty ensuring patency of the hypogastric artery. After 14 minutes of filling, the polymer injection syringe was removed. The main body deployment apparatus was disengaged from the main body device and the deployment apparatus removed through the existing sheath. A retrograde right pelvic angiogram was then performed confirming the ostium of the right hypogastric artery. From the ipsilateral side, a 14 x 140 mm iliac stent graft was advanced, positioned at the flow divider, and deployed without difficulty. After removing the deployment apparatus from both groins, through both sheaths, 10 mm [place] balloons were advanced and angioplasty was performed by both and Dr. Crowell from the flow divider through both iliac outflow limbs using kissing balloon technique. After initial angioplasty, from the right groin, a Reliant balloon was advanced into the inflow portion of the main body, and angioplasty of the inflow polymer filled ratings was performed. After final angioplasty, the balloon was removed. From the right groin, flush catheter was advanced into the suprarenal abdominal aorta. Aortogram was performed showing no endoleak, patent bilateral iliac outflow, and excellent positioning of the device. Protamine 25 mg was administered. At this point, sheath was removed and the right groin and hemostasis achieved with completion of both Perclose sutures, and manual compression. The left groin sheath was removed as well and hemostasis achieved with closure of the Perclose sutures and manual compression. Patient was transferred to PACU in stable condition, intubated. She tolerated the procedure well. Medications: General endotracheal anesthesia. Contrast: Omnipaque 350, 100 cc. Fluoroscopy: 15.4 minutes, 99 total images obtained. Impression: Successful and uncomplicated placement of Ovation IX stent graft, treating abdominal aortic aneurysm as described. Uncomplicated percutaneous closure of both groin access sites. PROCEDURE INTERPRETED AT [facility] DEPARTMENT OF RADIOLOGY Final Report Signed by: Raymond Anderson M.D.
--- NOTE | 2016-10-22 13:29 | Pulmonology Progress Note ---
Pulmonary - PN: Subj Interval history: Patient is a 70-year-old white lady that has severe COPD along with a lot of vascular problems. She has an abdominal aortic aneurysm and she came in today for an endovascular repair of her aneurysm. The patient has chronically been on oxygen and bronchodilator therapy. She has had a left upper lobe resection in the past. She does have a component of pulmonary hypertension. She has been reasonably stable and her breathing was stable so she is decided to have this endovascular repair. She did well today and is in the ICU postop. She is alert and comfortable and not really having much distress. She does get anxious easily and her blood pressure is elevated. Otherwise she seems to be breathing well. Exam (Progress Note) - Constitutional Vitals: Period Temp Pulse Resp BP Sys/Almodovar Pulse Ox Last 24 Hr 97.3 F-98.9 F 97-117 16-20 145-173/85-105 95-100 General appearance: normal weight, no acute distress - Head Head exam: Present: normal inspection, normocephalic - Eye Eye exam: Present: EOMI. Absent: scleral icterus Pupils: Present: MAIKOL - ENT ENT exam: Present: normal exam - Neck Neck exam: Present: normal inspection. Absent: lymphadenopathy, thyromegaly - Respiratory Respiratory exam: Present: decreased breath sounds, prolonged expiratory phase, rhonchi - Cardiovascular Cardiovascular exam: Present: regular rate and rhythm, tachycardia. Absent: gallop, systolic murmur - GI/Abdominal GI/Abdominal exam: Present: normal bowel sounds, soft. Absent: organomegaly, tenderness - Extremities Exam Extremities exam: Absent: calf tenderness, edema - Neurological Exam Neurological exam: Present: alert, oriented X3, CN II-XII intact. Absent: motor sensory deficit - Psychiatric Psychiatric exam: Present: anxious - Skin Skin exam: Present: warm, dry Results - Labs CBC & BMP: 10/22/16 11:10 10/22/16 11:48 Assessment and Plan (1) History of repair of aneurysm of abdominal aorta using endovascular stent graft Status: Acute Assessment and plan: The patient comes in and has an endovascular repair of her aneurysm. She is doing fairly well post procedure. Current Visit: Yes (2) Essential hypertension Status: Chronic Assessment and plan: She is anxious and her blood pressure is elevated and she will be started on medications. Current Visit: No (3) COPD (chronic obstructive pulmonary disease) Status: Chronic Assessment and plan: She does have severe COPD that is reasonably stable. We will continue with bronchodilator therapy. Current Visit: No (4) CAD (coronary artery disease) Status: Chronic Assessment and plan: The patient is not having any angina at present. Current Visit: No (5) Aneurysm of infrarenal abdominal aorta Status: Acute Assessment and plan: The patient has a large aneurysm and comes in for endovascular repair of the aneurysm. Current Visit: No
--- NOTE | 2016-10-22 13:45 | Cardiology Consult Note ---
<Sandra Parsons E - Last Filed: 10/22/16 13:49> Assessment and Plan - Time spent with patient Time spent with patient: Greater than 30 minutes (due to assessment, plan, and documentation) (1) History of repair of aneurysm of abdominal aorta using endovascular stent graft Status: Acute Assessment and plan: See plan of care listed below. Current Visit: Yes (2) Essential hypertension Status: Chronic Assessment and plan: See plan of care listed below. Current Visit: No (3) COPD (chronic obstructive pulmonary disease) Status: Chronic Assessment and plan: See plan of care listed below. Current Visit: No (4) CAD (coronary artery disease) Status: Chronic Assessment and plan: See plan of care listed below. Current Visit: No (5) Former smoker Status: Chronic Assessment and plan: See plan of care listed below. Current Visit: Yes History of Present Illness - Data of Consult Consult date: 10/22/16 Requesting Physician: Andry Crowell Primary care physician: Dacia Slater - Consult Narrative Reason for consult: Follow post op AAA History of present illness: Pulmonologist Intensivist: Dr. Hall PCP: ILIANA Griffith Attending: Dr. Crowell Ms. Shea underwent endovascular repair of an abdominal aortic aneurysm today by Dr. Crowell. We were consulted to follow her post operatively. Ms. Shea is a 70 year old female with a history of pulmonary hypertension, COPD, systemic hypertension, history of two-vessel coronary artery disease, history of abdominal aortic aneurysm. She is a former smoker. She is status post left heart catheterization on 08/09/15 which revealed single-vessel coronary artery disease with good collateralization from the left circumflex to the right coronary artery. She was found to have EF >55%. She has chronically been on oxygen and bronchodilator therapy. We are seeing her post operatively in the ICU. Her right radial arterial line is measuring elevated blood pressure readings. We will take a look at her home medications and adjust as needed. Her right groin dressing is dry and intact with sandbag in place. Left groin dressing shows mild sanguineous drainage. There are no hematomas present. Distal pulses are present and palpable. She denies complaints of chest pain, palpitations, dizziness, lightheadedness, or syncope at present. She is not short of breath but does have an occasional cough and a sensation of needing to "cough something up." Assessment/Plan: 1. Status post abdominal aortic aneurysm repair using endovascular stent graft - Ms. Shea underwent endovascular repair of an abdominal aortic aneurysm today by Dr. Crowell. 2. Essential hypertension - Will adjust medications as tolerated. She takes her medications differently as prescribed on the medication bottles. These are reflected on her home medication reconciliation as she usually takes them. She reports she has recently been given a prescription for Lisinopril/HCTZ but was instructed not to start this medication until after her surgery. 3. COPD - Pulmonology is following. She has been started on breathing treatments and O2 via NBP is in place. 4. CAD - Patient recently underwent a normal perfusion study on 09/16/16 which revealed no evidence of ischemia. Echocardiogram on 09/16/16 revealed EF 55% with mild to moderate LVH, mild MR, mild TR, PAP 48mHg. 5. Former smoker - Chronic. Will further discuss with Dr. Handley and await additional recommendations. CC: Andry Crowell MD - Home Medications and Allergies Home Medications: Home Medications Medication Instructions Recorded Confirmed Type Gabapentin [Neurontin] 800 mg PO BID 09/02/14 10/22/16 History Estropipate 1 tablet PO DAILY 08/09/15 10/22/16 History Promethazine Tab [Phenergan Tab] 1 tablet PO Q4HR PRN 08/09/15 10/22/16 History cloNIDine TAB [Catapres Tab] 0.3 mg PO DAILY 08/09/15 10/22/16 History Pantoprazole Tab [Protonix Tab] 40 mg PO DAILY tablet 08/20/15 10/22/16 Rx ALPRAZolam [Xanax] 1 mg PO TID PRN 07/10/16 10/22/16 History Duloxetine HCl [Duloxetine] 30 mg PO BEDTIME 07/10/16 10/22/16 History Furosemide Tab [Lasix Tab] 20 mg PO DAILY PRN 07/10/16 10/22/16 History Umeclidinium Brm/Vilanterol Tr 1 puff INH DAILY 07/10/16 10/22/16 History [Anoro Ellipta] Albuterol Sulfate [Ventolin HFA] 2 puff INH DAILY 10/21/16 10/22/16 History Albuterol/Ipratropium Neb [Duoneb] 3 ml RESP TX RT Q8H 10/21/16 10/22/16 History HYDROcodone/ACETAMIN 10-325 [[place] 1 tablet PO Q4H PRN 10/21/16 10/22/16 History 10-325] Meloxicam [Mobic] 15 mg PO BEDTIME 10/21/16 10/22/16 History Theophylline ER Tab 300 mg PO BID W/MEALS 10/21/16 10/22/16 History Zolpidem Tartrate 10 mg PO BEDTIME PRN 10/21/16 10/22/16 History predniSONE TAB [PredniSONE] 10 mg PO DAILY 10/21/16 10/22/16 History Azelastine HCl [Astepro Nasal 1 spray BOTH NARES DAILY 10/22/16 10/22/16 History [place]] Diphenoxylate HCl/Atropine 1 - 2 tablet PO Q4HR PRN 10/22/16 10/22/16 History [Diphenoxylate/Atropine 2.5-0.025 mg Tab] Donepezil HCl 10 mg PO BEDTIME 10/22/16 10/22/16 History Linaclotide [Linzess] 290 mcg PO DAILY 10/22/16 10/22/16 History Lubiprostone [Amitiza] 24 mcg PO BID PRN 10/22/16 10/22/16 History Pantoprazole Tab [Protonix Tab] 40 mg PO DAILY 10/22/16 10/22/16 History Ranitidine Tab [Zantac Tab] 150 mg PO BID 10/22/16 10/22/16 History cloNIDine HCl [Clonidine HCl] 0.1 mg PO BID PRN 10/22/16 10/22/16 History traZODone [Desyrel] 1 - 2 mg PO BEDTIME PRN 10/22/16 10/22/16 History Allergies/Adverse Reactions: Allergies Allergy/AdvReac Type Severity Reaction Status Date / Time levofloxacin [From Levaquin] Allergy RASH Verified 08/19/16 18:09 ciprofloxacin [From Cipro] AdvReac Intermediate Patient Verified 10/17/16 10:51 Can't Remember-?N/V Knmylob-Scw-Odi Reductase AdvReac Confusion Verified 08/19/16 18:09 Inhibitor Review of systems: - Constitutional: Present: As per HPI. Absent: anorexia, chills, daytime sleepiness, excessive sweating, fever(s), frequent falls, headache(s), increased appetite, lethargy, malaise, night sweats, stops breathing during sleep, weakness, weight gain, weight loss, fatigue. - EENT Eyes: Present: As per HPI. Absent: blurry vision, diplopia, loss of vision Ears: Present: As per HPI. Absent: decreased hearing, ear discharge, ear pain Nose, mouth and throat: Present: As per HPI. Absent: dysphagia, epistaxis, headache(s), hoarseness, lip swelling, nasal congestion, neck mass, neck pain, sinus pressure, sore throat, throat swelling, tongue swelling, vertigo - Cardiovascular: Present: orthopnea, dyspnea on exertion, as per HPI. Absent: chest pain at rest, chest pain with activity, dyspnea, edema, claudication, diaphoresis, radiating jaw, neck or arm pain, lightheadedness, palpitations, PND - Respiratory: Present: cough, as per HPI. Absent: dyspnea, dyspnea on exertion , hemoptysis, wheezing, snoring, pain on inspiration - Gastrointestinal: Present: constipation, As per HPI. Absent: abdominal pain, bloating, change in bowel habits, diarrhea, heartburn, hematemesis, hematochezia , loose stools, melena, nausea, vomiting - Genitourinary: Present: As per HPI. Absent: difficulty urinating, dysuria, flank pain, hematuria, nocturia, urinary frequency, urinary incontinence - Musculoskeletal: Present: As per HPI. Absent: arthralgias, back pain, joint swelling, limited range of motion, muscle cramps, muscle weakness, myalgias - Neurological: Present: As per HPI. Absent: abnormal gait, abnormal speech, behavioral changes, confusion, convulsions, disequilibrium, dizziness, focal weakness, frequent falls, headache(s), memory loss, numbness, paresthesias, radicular pain, syncope, tremor(s) - Psychiatric: Present: As per HPI. Absent: anxiety, confusion, depression, panic attacks - Endocrine: Present: As per HPI. Absent: cold intolerance, fatigue, heat intolerance, polydipsia, polyphagia - Hematologic/Lymphatic: Present: easy bruising, As per HPI. Absent: easy bleeding, lymphadenopathy Medical,Surgical,& Family Hx - Medical History Cardio: History of: CAD, Hypertension No history of: Cardiac Dysrhythmia, [place] Comment Only: CHF (daughter thinks so but is not sure) Psychological: History of: Anxiety Disorders, Depression Neurology: No history of: Peripheral Neuropathy, Seizures HEENT: History of: Eye Problem (GLASSES), Dental Problems (UPPER AND LOWER) Endocrine: No history of: Diabetes Mellitus (NIDDM) Rheumatology: History of;: Rheumatoid Arthritis Respiratory: History of: Bronchitis, COPD (O2 dependent), Obstructive Sleep Apnea, Respiratory Problems (Left UPPER lobe of LUNG REMOVED) Genitourinary: History of: Recurring Urinary Tract Infections Gastrointestinal: History of: GERD, GI Problems (esophageal strictures requiring dilation in the past before 2005) Musculoskeletal: History of: Back/Neck Problems (treated at pain clinic), Musculoskeletal Problems (arthritis) Hematology: No history of: Blood Transfusion Reaction Other: History of: Anaphylaxis No history of: Anesthesia Reactions - Surgical History Cardiac Surgeries: Sugical HX of: Cardiac Catheterization (DR HALL 2015) Thoracic Surgeries: Patient denies;: Organ Transplant HEENT Surgeries: Surgical HX of: Tonsilectomy & Adenoidectomy Abdominal Surgeries: Surgical HX of: Abdominal Surgery, Appendectomy Reproductive Surgeries: Surgical HX of;: Section, Genitourinary Surgery (bladder mesh tact), Hysterectomy Orthopedic Surgeries: Surgical HX of;: Implanted Devices, Orthopedic Surgery ( BROKE LEFT HIP IN PAST) - Family History Family History: Reports;: Family Cancer (father), Family Diabetes, Family Hypertension, Family Stroke Denies;: Family Heart Disease - Social History Smoking Status: Former smoker Frequency of Alcohol Use: None Type of Drug Use: None Marital Status: Lives With:: Spouse Physical Examination Vital Signs Temp Pulse Resp BP Pulse Ox 98.9 F 97 H 20 148/103 97 10/22/16 07:14 10/22/16 07:14 10/22/16 07:14 10/22/16 07:14 10/22/16 07:14 Other: General appearance: Pleasant and cooperative. Normal weight, no acute distress. - Head Head exam: Present: normal inspection, normocephalic, atraumatic. Absent: hematoma, laceration - Eye Eye exam: Present: EOMI. Absent: conjunctival injection, nystagmus, periorbital swelling, scleral icterus, laceration to eyelids Pupils: Present: PERRL. Absent: constricted, dilated, fixed, irregular, unequal - ENT ENT exam: Present: normal exam, normal external ear exam - Neck Neck exam: Present: normal inspection. Absent: lymphadenopathy, meningismus, tenderness, thyromegaly - Respiratory Respiratory exam: Present: clear to auscultation bilaterally. Absent: accessory muscle use, chest wall tenderness - Cardiovascular Cardiovascular exam: Present: regular rate and rhythm. Absent: carotid bruit, gallop, JVD, rubs, murmur - GI/Abdominal GI/Abdominal exam: Present: normal bowel sounds, soft. Absent: distended, firm , guarding, hernia, mass, tenderness, rebound. - Extremities Exam Extremities exam: Present: normal inspection, normal capillary refill. Upper extremity pulses 2+. Lower extremity pulses 2+. Absent: calf tenderness, edema Right groin: sandbag in place. Dressing dry and intact. No bleeding or hematoma. Left groin: Dressing dry and intact. No bleeding or hematoma. -Musculoskeletal Exam Musculoskeletal: Present: No Fluid Collection, No Pain, Normal Range of Motion - Back Exam Back exam: Present: normal inspection. Absent: muscle spasm, vertebral tenderness - Neurological Exam Neurological exam: Present: alert, oriented X3, grossly intact without resting or essential tremor - Psychiatric Psychiatric exam: Present: normal affect, normal mood - Skin Skin exam: Present: normal color, warm, dry, intact. Absent: cyanosis, diaphoretic, rash, urticaria Result/EKG - Labs CBC & BMP: 10/22/16 11:10 10/22/16 11:48 Lab Results: I have reviewed the past 24 hour labs Labs: Laboratory Results - last 24 hr 10/22/16 10/22/16 10/22/16 06:35 11:10 11:48 Hgb 11.3 L Hct 35.3 L Sodium 140 Potassium 4.6 Chloride 103 Carbon Dioxide 31 Anion Gap 10.6 BUN 20 H Creatinine 0.70 GFR Calculation 93 BUN/Creatinine Ratio 28.00 H Glucose 152 H Calculated Osmolality 284.4 Calcium 8.4 L Blood Type O POSITIVE Antibody Screen Negative - EKG EKG results: interpreted by me, sinus rhythm Quality Measures - VTE Contraindication to Pharmacological VTE Prophylaxis: High Risk of Bleeding <Konstantin Handley - Last Filed: 10/22/16 16:21> History of Present Illness - Consult Narrative History of present illness: Cardiology addendum Patient examined chart reviewed and discussed with nurse Sandra Parsons NP. Status post endovascular AAA repair today. Underlying severe COPD on continuous home O2 at 2 L/min Status post left upper lobe resection 2000 for benign lesion Longtime tobacco abuse, quit 2009 CAD stable Cardiac cath August 08, 2016 showed 100% proximal right coronary with left-to- right collaterals, 40% mid LAD, mild circumflex, EF 55% with PA pressure 45/20 and cardiac output 4.2 L/min Diet-controlled diabetes Moderate pulmonary hypertension Hyperlipidemia not on statin therapy due to nausea. EKG shows sinus tach with preserved airways and ST-T wave changes. Blood pressure 150/80 telemetry shows sinus rhythm at 92 and O2 sat 98% on 2 L cannula Decreased breath sounds throughout but no wheezing Regular rhythm no murmur Abdomen soft Distal pulses 2+ Plan Check labs in a.m. Watch rhythm and respiratory status Start Crestor 20 mg daily CC: Andry Crowell MD Physical Examination Vital Signs Temp Pulse Resp BP Pulse Ox 98.9 F 97 H 20 148/103 97 10/22/16 07:14 10/22/16 07:14 10/22/16 07:14 10/22/16 07:14 10/22/16 07:14 Result/EKG - Labs CBC & BMP: 10/22/16 11:10 10/22/16 11:48 Labs: Laboratory Results - last 24 hr 10/22/16 10/22/16 10/22/16 06:35 11:10 11:48 Hgb 11.3 L Hct 35.3 L Sodium 140 Potassium 4.6 Chloride 103 Carbon Dioxide 31 Anion Gap 10.6 BUN 20 H Creatinine 0.70 GFR Calculation 93 BUN/Creatinine Ratio 28.00 H Glucose 152 H Calculated Osmolality 284.4 Calcium 8.4 L Blood Type O POSITIVE Antibody Screen Negative
[2016-10-22] MEDS ORDERED: cloNIDine 0.1 MG TABLET PO PRN (13:47)
[2016-10-22] MEDS ORDERED: ALBUTEROL/IPRATROPIUM 3 ML NEB RESP TX SCH (15:00)
[2016-10-22] MEDS ORDERED: ALBUTEROL 2.5 MG/3 ML NEB RESP TX PRN (17:17)
[2016-10-22] MEDS: THEOPHYLLINE ER 300 MG TABLET PO SCH (18:25)
[2016-10-22] MEDS: ALBUTEROL/IPRATROPIUM 3 ML NEB RESP TX SCH (20:02)
[2016-10-22] MEDS: GABAPENTIN 400 MG CAPSULE PO SCH (20:40)
[2016-10-22] MEDS: MELOXICAM 7.5 MG TABLET PO SCH (20:41)
[2016-10-22] MEDS: DULoxetine 30 MG CAPSULE PO SCH (20:42)
[2016-10-22] MEDS: ROSUVASTATIN 20 MG TABLET PO SCH (20:43)
[2016-10-23] MEDS: ZALEPLON 5 MG CAPSULE PO PRN ×2 (01:07→21:14)
[2016-10-23] MEDS: DEXTROSE 5% NACL 0.45% 1,000 ML IV SCH (01:21)
[2016-10-23] MEDS: ALBUTEROL/IPRATROPIUM 3 ML NEB RESP TX SCH ×4 (01:48→19:07)
[2016-10-23 04:24] LABS: Basophils % 0.1 % (0.0-0.8); Eosinophils # 0.1 10*3/uL (0.0-0.87); Eosinophils % 0.7 % (0.00-10.9); Hematocrit 32.1 VOL% (35.7-47.0); Hemoglobin 10.1 GM/DL (12.0-16.0); Immature Granulocytes % 0.5 %; Immature Granulocytes Absolute 0.04 #; Lymphocytes # 0.8 10*3/uL (1.4-4.0); Lymphocytes % 9.4 % (21.3-54.2); Mean Corpuscular HGB Conc 31.5 GM/DL (32-36); Mean Corpuscular Hemoglobin 31 PG (27-34); Mean Corpuscular Volume 97.6 FL (87-102); Mean Platelet Volume 9.5 FL (9.6-12.0); Monocytes # 0.8 10*3/uL (0.11-0.8); Monocytes % 9.7 % (1.7-12.7); Neutrophils # 6.6 10*3/uL (1.4-7.4); Neutrophils % 79.6 % (38.7-73.9); Platelet Count 168 T/CUMM (130-400); Red Blood Count 3.29 MC/CUMM (3.8-5.5); Red Cell Distribution Width 14.6 % (9.3-17.3); White Blood Count 8.3 T/CUMM (4-12)
[2016-10-23 04:56] LABS: Calcium 8.3 MG/DL (8.5-10.1); Osmolality,Calculated 283.1 MOS/KG (273-304); Potassium 4.1 MMOL/L (3.5-5.1)
--- NOTE | 2016-10-23 06:55 | XRay Report ---
Exam: XR KUB Date: 10/23/2016 4:00 AM Indication: Follow-up abdominal aortic aneurysm repair Comparison: 10/22/2016 and routine abdomen 08/19/2016 Technical: Portable supine Findings: Endoluminal stent graft is present. No obvious pneumoperitoneum. The liver shadow is unremarkable. The renal shadows and spleen are not well seen. Some dilated loops of small bowel and large bowel are present. No definite free air demonstrated. Impression: 1. Interval placement of endoluminal stent graft 2. Abdominal ileus pattern present If additional imaging is warranted CT angiography may be beneficial of the abdomen pelvis PROCEDURE INTERPRETED AT [facility] DEPARTMENT OF RADIOLOGY Final Report Signed by: Dr. Sam Robertson
--- NOTE | 2016-10-23 07:10 | Cardiology Progress Note ---
Cardiology - PN: Subj Interval history: Cardiology note Postop day #1 endovascular AAA repair Alert and responsive Telemetry shows sinus rhythm with PACs in the 90s O2 sat 99 on 2 L cannula Blood pressure 130/74. Regular rhythm no gallop Decreased breath sounds but no wheezing Abdomen soft Incision sites look good Palpable distal pulses Lab data today Hemoglobin 10.1 hematocrit 32.1 white count 8.3 Sodium 142 potassium 4.1 chloride 105 CO2 30 BUN 12 creatinine 0.60 glucose 117 Impression postop day #1 endovascular AAA repair Severe COPD on continuous home O2 Status post left upper lobe resection 2000 for benign lesion Longtime tobacco abuse, quit 2009 Cardiac cath August 08, 2016 showed 100% proximal right coronary with left-to- right collaterals, 40% mid LAD, mild circumflex EF 55% with PA pressure 45/20 cardiac output 4.2 L/min. Diet-controlled diabetes Moderate pulmonary hypertension Hyperlipidemia Plan Pulmonary toilet Crestor 20 mg daily started Transfer to floor okay with me Exam (Progress Note) - Constitutional Vitals: Period Temp Pulse Resp BP Sys/Almodovar Pulse Ox Last 24 Hr 97.3 F-98.9 F 81-117 12-20 85-176/57-105 95-100 Result/EKG - Labs CBC & BMP: 10/23/16 03:50 10/23/16 03:51 Labs: Laboratory Results - last 24 hr 10/22/16 10/22/16 10/22/16 06:35 11:10 11:48 WBC RBC Hgb 11.3 L Hct 35.3 L MCV MCH MCHC RDW Plt Count MPV Neut % (Auto) Lymph % (Auto) [place] % (Auto) Eos % (Auto) Baso % (Auto) Neut # (Auto) Lymph # (Auto) [place] # (Auto) Eos # (Auto) Baso # (Auto) Immature Gran % Nucleated RBC % Immature Gran # Nucleated RBCs # Sodium 140 Potassium 4.6 Chloride 103 Carbon Dioxide 31 Anion Gap 10.6 BUN 20 H Creatinine 0.70 GFR Calculation 93 BUN/Creatinine Ratio 28.00 H Glucose 152 H Calculated Osmolality 284.4 Calcium 8.4 L Blood Type O POSITIVE Antibody Screen Negative 10/23/16 10/23/16 03:50 03:51 WBC 8.3 RBC 3.29 L Hgb 10.1 L Hct 32.1 L MCV 97.6 MCH 31 MCHC 31.5 L RDW 14.6 Plt Count 168 MPV 9.5 L Neut % (Auto) 79.6 H Lymph % (Auto) 9.4 L [place] % (Auto) 9.7 Eos % (Auto) 0.7 Baso % (Auto) 0.1 Neut # (Auto) 6.6 Lymph # (Auto) 0.8 L [place] # (Auto) 0.8 Eos # (Auto) 0.1 Baso # (Auto) 0.0 Immature Gran % 0.5 Nucleated RBC % 0.0 Immature Gran # 0.04 Nucleated RBCs # 0.00 Sodium 142 Potassium 4.1 Chloride 105 Carbon Dioxide 30 Anion Gap 11.1 BUN 12 Creatinine 0.60 GFR Calculation 99 BUN/Creatinine Ratio 20.00 Glucose 117 H Calculated Osmolality 283.1 Calcium 8.3 L Blood Type Antibody Screen Quality Measures - VTE Contraindication to Pharmacological VTE Prophylaxis: High Risk of Bleeding
--- NOTE | 2016-10-23 08:14 | Pulmonology Progress Note ---
Pulmonary - PN: Subj Interval history: Patient is a 70-year-old white lady that has severe COPD along with a lot of vascular problems. She has an abdominal aortic aneurysm and she came in today for an endovascular repair of her aneurysm. The patient has chronically been on oxygen and bronchodilator therapy. She has had a left upper lobe resection in the past. She does have a component of pulmonary hypertension. She has been reasonably stable and her breathing was stable so she is decided to have this endovascular repair. She did well with the procedure and had a fairly good night. She did require some breathing treatments but she is comfortable now. She says she did not sleep very well but otherwise is doing okay. She does not seem to be having too much pain at all. She can probably increase her activity today. Exam (Progress Note) - Constitutional Vitals: Period Temp Pulse Resp BP Sys/Almodovar Pulse Ox Last 24 Hr 97.3 F-98.7 F 78-117 12-20 85-176/57-105 95-100 Exam: General appearance: normal weight, no acute distress, she looks like she is breathing comfortably at present. - Head Head exam: Present: normal inspection, normocephalic - Eye Eye exam: Present: EOMI. Absent: scleral icterus Pupils: Present: MAIKOL - ENT ENT exam: Present: normal exam - Neck Neck exam: Present: normal inspection. Absent: lymphadenopathy, thyromegaly - Respiratory Respiratory exam: Present: She has fair breath sounds bilaterally with some faint wheezing. - Cardiovascular Cardiovascular exam: Present: regular rate and rhythm, tachycardia. Absent: gallop, systolic murmur - GI/Abdominal GI/Abdominal exam: Present: normal bowel sounds, soft. Absent: organomegaly, tenderness - Extremities Exam Extremities exam: Absent: calf tenderness, edema - Neurological Exam Neurological exam: Present: alert, oriented X3, CN II-XII intact. Absent: motor sensory deficit - Psychiatric Psychiatric exam: Present: She seems to be fairly calm today. - Skin Skin exam: Present: warm, dry Results - Labs CBC & BMP: 10/23/16 03:50 10/23/16 03:51 Assessment and Plan (1) History of repair of aneurysm of abdominal aorta using endovascular stent graft Status: Acute Assessment and plan: The patient comes in and has an endovascular repair of her aneurysm. She has done reasonably well and her breathing is okay. She is not having any abdominal pain. Current Visit: Yes (2) Essential hypertension Status: Chronic Assessment and plan: She is doing better and her blood pressure and heart rate are stable. Current Visit: No (3) COPD (chronic obstructive pulmonary disease) Status: Chronic Assessment and plan: She does have severe COPD that is reasonably stable. We will continue with bronchodilator therapy. She is moving air reasonably well at present Current Visit: No (4) CAD (coronary artery disease) Status: Chronic Assessment and plan: The patient is not having any angina at present. Current Visit: No (5) Aneurysm of infrarenal abdominal aorta Status: Acute Assessment and plan: The patient has a large aneurysm and comes in for endovascular repair of the aneurysm. Overall she is stable post procedure. Current Visit: No
[2016-10-23] MEDS: THEOPHYLLINE ER 300 MG TABLET PO SCH ×2 (08:20→17:11)
[2016-10-23] MEDS: PANTOPRAZOLE 40 MG TABLET PO SCH (08:20)
[2016-10-23] MEDS: cloNIDine 0.1 MG TABLET PO SCH (08:21)
[2016-10-23] MEDS: ESTROPIPATE 0.75 MG TABLET PO SCH (08:21)
[2016-10-23] MEDS: predniSONE 5 MG TABLET PO SCH (08:21)
[2016-10-23] MEDS ORDERED: predniSONE 10 MG TABLET ONE (08:23)
--- NOTE | 2016-10-23 08:45 | Event Note ---
Postop day 1 LEONCIO R AAA. Procedure performed percutaneously. No events overnight. Patient comfortable, tolerating p.o. intake. Vital signs stable. Both groins are unremarkable. Feet are warm, dry, with palpable bilateral DP pulses. Anticipate transfer out of the ICU and possible discharge within the next 24 hours.
--- NOTE | 2016-10-23 08:48 | Event Note ---
Ms. Shea is awake alert eating breakfast doing well labs are KUB looks good no significant hematomas she is ready for transfer to the room start ambulating and then be discussing discharge
[2016-10-23] MEDS ORDERED: ALBUTEROL 2.5 MG/3 ML NEB RESP TX SCH (09:00)
[2016-10-23] MEDS: VILANTEROL TR INH SCH ×2 (09:14→09:17)
[2016-10-23] MEDS: UMECLIDINIUM BRM INH SCH ×2 (09:14→09:17)
[2016-10-23] MEDS: LACTATED RINGERS 1,000 ML IV SCH (09:16)
[2016-10-23] MEDS: ASPIRIN EC 81 MG TABLET PO SCH (09:19)
--- NOTE | 2016-10-23 14:18 | Event Note ---
Ms. Shea is awake alert doing well no hematomas feet are warm I am going to DC the Moore catheter and IV fluids she may be ready for discharge tomorrow
[2016-10-23] MEDS: ROSUVASTATIN 20 MG TABLET PO SCH (21:14)
[2016-10-23] MEDS: DULoxetine 30 MG CAPSULE PO SCH (21:14)
[2016-10-23] MEDS: MELOXICAM 7.5 MG TABLET PO SCH (21:14)
[2016-10-23] MEDS: GABAPENTIN 400 MG CAPSULE PO SCH (21:14)
[2016-10-24] MEDS: ALBUTEROL/IPRATROPIUM 3 ML NEB RESP TX SCH ×3 (00:43→13:23)
--- NOTE | 2016-10-24 08:13 | Discharge Summary ---
Hospital Course - Hospital Course Hospital Course: Medication is 70-year-old woman was admitted for the endovascular repair of her abdominal aortic aneurysm this was carried out successfully using an ovation system and she is done well we did watch her in the ICU overnight due to her significant COPD. She is now up and ambulatory in the room and in the [place] using her medic oxygen and she normally does not requiring any significant analgesia. Groin incisions are good with no significant he. Plan is for her to be discharged home today I have discussed with her wound care exercise diet medications and I will plan to see her in the office next week Discharge Plan - Discharge Data Disposition: Disch To Home/Self Care Condition at Discharge: Stable Discharge Diet: advance to your usual diet Activity: resume usual activities as tolerated Hygiene: may shower Weight Bearing at Discharge: full weight bearing Driving: not until seen by doctor Contact your physician if you experience:: fever over 101, Redness or swelling, Bleeding - Discharge Medications No Action Gabapentin [Neurontin] 800 mg PO BID Promethazine Tab [Phenergan Tab] 1 tablet PO Q4HR PRN PRN Reason: Nausea Estropipate 1 tablet PO DAILY cloNIDine TAB [Catapres Tab] 0.3 mg PO DAILY Pantoprazole Tab [Protonix Tab] 40 mg PO DAILY tablet Umeclidinium Brm/Vilanterol Tr [Anoro Ellipta] 1 puff INH DAILY Duloxetine HCl [Duloxetine] 30 mg PO BEDTIME ALPRAZolam [Xanax] 1 mg PO TID PRN PRN Reason: Anxiety Furosemide Tab [Lasix Tab] 20 mg PO DAILY PRN PRN Reason: Edema Theophylline ER Tab 300 mg PO BID W/MEALS predniSONE TAB [PredniSONE] 10 mg PO DAILY cloNIDine HCl [Clonidine HCl] 0.1 mg PO BID PRN PRN Reason: Hypertension Donepezil HCl 10 mg PO BEDTIME Ranitidine Tab [Zantac Tab] 150 mg PO BID Diphenoxylate HCl/Atropine [Diphenoxylate/Atropine 2.5-0.025 mg Tab] 1 - 2 tablet PO Q4HR PRN PRN Reason: Diarrhea Azelastine HCl [Astepro Nasal [place]] 1 spray BOTH NARES DAILY traZODone [Desyrel] 1 - 2 mg PO BEDTIME PRN PRN Reason: Insomnia Lubiprostone [Amitiza] 24 mcg PO BID PRN PRN Reason: Constipation Linaclotide [Linzess] 290 mcg PO DAILY Umeclidinium Brm/Vilanterol Tr [Anoro Ellipta] 1 puff INH DAILY Albuterol Sulfate [Ventolin HFA] 2 puff INH DAILY Meloxicam [Mobic] 15 mg PO BEDTIME HYDROcodone/ACETAMIN 10-325 [[place] 10-325] 1 tablet PO Q4H PRN PRN Reason: Pain Albuterol/Ipratropium Neb [Duoneb] 3 ml RESP TX RT Q8H Zolpidem Tartrate 10 mg PO BEDTIME PRN PRN Reason: Sleep Pantoprazole Tab [Protonix Tab] 40 mg PO DAILY - Follow Up or Referral Follow Up: Andry Crowell MD [Physician] - 1 Week - Forms/Instructions Exam - Constitutional Vitals: Period Temp Pulse Resp BP Sys/Almodovar Pulse Ox Last 24 Hr 97.4 F-99.0 F 75-112 16-22 124-158/78-96 94-100 Discharge Results Procedures and tests throughout hospitalization: Pending Orders 10/22/16 16:00 MRSA Surveillence, Inf Control Routine Labs on day of discharge: Preliminary micro results at discharge 10/22/16 16:00 MRSA Surveillance Culture - Preliminary Nasal Passage No MRSA isolated. DS: Provider Date of admission: 10/22/16 06:18 Primary care physician: Dacia Slater NP Attending physician on admission: Andry Crowell MD Consults: 10/22/16 10:37 Consult to Physician [CONS] Routine Comment: patient known to you Consulting Provider: Aidan Santoyo Consulting Provider Notified: Yes Consult to Specialist Group: Pulmonology Person Notified: LUDWIN Date Notified: 10/22/16 Time Notified: 12:00 10/22/16 10:38 Consult to Physician [CONS] Routine Comment: patient known to you. Follow post op Consulting Provider: Marshal Hall Consulting Provider Notified: Yes Consult to Specialist Group: Cardiology Person Notified: OZIEL Date Notified: 10/22/16 Time Notified: 11:55 Discharging clinician: Andry Crowell MD
[2016-10-24] MEDS: cloNIDine 0.1 MG TABLET PO SCH (08:21)
[2016-10-24] MEDS: THEOPHYLLINE ER 300 MG TABLET PO SCH (08:21)
[2016-10-24] MEDS: PANTOPRAZOLE 40 MG TABLET PO SCH (08:21)
[2016-10-24] MEDS: ASPIRIN EC 81 MG TABLET PO SCH (08:21)
[2016-10-24] MEDS: predniSONE 5 MG TABLET PO SCH (08:21)
[2016-10-24] MEDS: ESTROPIPATE 0.75 MG TABLET PO SCH (08:22)
[2016-10-24] MEDS: UMECLIDINIUM BRM INH SCH (08:35)
[2016-10-24] MEDS: VILANTEROL TR INH SCH (08:35)
--- NOTE | 2016-10-24 09:18 | Pulmonology Progress Note ---
Pulmonary - PN: Subj Interval history: Patient is a 70-year-old white lady that has severe COPD along with a lot of vascular problems. She has an abdominal aortic aneurysm and she came in today for an endovascular repair of her aneurysm. The patient has chronically been on oxygen and bronchodilator therapy. She has had a left upper lobe resection in the past. She does have a component of pulmonary hypertension. She has been reasonably stable and her breathing was stable so she is decided to have this endovascular repair. She had a fairly good night and feels like she is breathing okay. She does get short of breath easily will continue with bronchodilator therapy. Her abdomen is doing well and her legs are not sore. Overall she is doing well and is going home today. Exam (Progress Note) - Constitutional Vitals: Period Temp Pulse Resp BP Sys/Almod[place]ar Pulse Ox Last 24 Hr 97.4 F-99.0 F 75-112 16-20 124-158/78-96 94-100 Exam: General appearance: normal weight, no acute distress, she looks comfortable and is moving around okay. - Head Head exam: Present: normal inspection, normocephalic - Eye Eye exam: Present: EOMI. Absent: scleral icterus Pupils: Present: MAIKOL - ENT ENT exam: Present: normal exam - Neck Neck exam: Present: normal inspection. Absent: lymphadenopathy, thyromegaly - Respiratory Respiratory exam: Present: She has distant breath sounds with prolonged expiration but she is not wheezing now. - Cardiovascular Cardiovascular exam: Present: regular rate and rhythm, tachycardia. Absent: gallop, systolic murmur - GI/Abdominal GI/Abdominal exam: Present: normal bowel sounds, soft. Absent: organomegaly, tenderness - Extremities Exam Extremities exam: Absent: calf tenderness, edema - Neurological Exam Neurological exam: Present: alert, oriented X3, CN II-XII intact. Absent: motor sensory deficit - Psychiatric Psychiatric exam: Present: She seems to be fairly calm today. - Skin Skin exam: Present: warm, dry Results - Labs CBC & BMP: 10/23/16 03:50 10/23/16 03:51 Assessment and Plan (1) History of repair of aneurysm of abdominal aorta using endovascular stent graft Status: Acute Assessment and plan: The patient comes in and has an endovascular repair of her aneurysm. She has done reasonably well and her breathing is okay. She is not having any abdominal pain. She is moving around better and feels well. She is going home today. Current Visit: Yes (2) Essential hypertension Status: Chronic Assessment and plan: She is doing better and her blood pressure and heart rate are stable. She will continue her blood pressure medicines. Current Visit: No (3) COPD (chronic obstructive pulmonary disease) Status: Chronic Assessment and plan: She does have severe COPD that is reasonably stable. We will continue with bronchodilator therapy. She is moving air reasonably well at present. She will continue bronchodilators at home. Current Visit: No (4) CAD (coronary artery disease) Status: Chronic Assessment and plan: The patient is not having any angina at present. Current Visit: No (5) Aneurysm of infrarenal abdominal aorta Status: Acute Assessment and plan: The patient has a large aneurysm and comes in for endovascular repair of the aneurysm. Overall she is stable post procedure. She is going home today. Current Visit: No Specialty Discharge - Follow Up or Referrals Follow up with: Andry Crowell MD [Physician] - 10/28/16 2:00 pm
[2016-10-24 11:18] VITALS: BP 134/84
== END 2016-10-24 14:40 | disposition home or self-care (01) | DRG 269 ==
LOC: N.SDSINP 06:18 → N.ICU 09:15 → N.3E 10-23 13:22
PROVIDERS: ADMIT Surgery; ATTEND Surgery
PROC: IRERAAA (2016-10-22 07:30)

== ENCOUNTER 2017-02-28 10:14 | Inpatient (IN) ==
[2017-02-28] MEDS ORDERED: SODIUM CHLORIDE 0.9% 1,000 ML IV STA ×2 (10:33→11:01)
[2017-02-28] MEDS ORDERED: PIPERACILLIN/TAZOBACTAM 3,375 MG in SODIUM CHLORIDE 0.9% 100 ML IV STA ×3 (11:01→13:50)
[2017-02-28] MEDS ORDERED: ALBUTEROL 2.5 MG/3 ML NEB RESP TX STA (11:04)
[2017-02-28] MEDS ORDERED: ALBUTEROL 2.5 MG/3 ML NEB RESP TX ONE (11:10)
[2017-02-28 11:27] LABS: Basophils # 0.1 10*3/uL (0.0-0.2); Basophils % 0.3 % (0.0-0.8); Eosinophils % 0.1 % (0.00-10.9); Hematocrit 48.1 VOL% (35.7-47.0); Hemoglobin 15.7 GM/DL (12.0-16.0); Immature Granulocytes % 0.5 %; Immature Granulocytes Absolute 0.08 #; Lymphocytes # 0.6 10*3/uL (1.4-4.0); Lymphocytes % 3.4 % (21.3-54.2); Mean Corpuscular HGB Conc 32.6 GM/DL (32-36); Mean Corpuscular Hemoglobin 30 PG (27-34); Mean Corpuscular Volume 90.2 FL (87-102); Mean Platelet Volume 10.8 FL (9.6-12.0); Monocytes # 1.9 10*3/uL (0.11-0.8); Monocytes % 10.6 % (1.7-12.7); Neutrophils % 85.1 % (38.7-73.9); Platelet Count 365 T/CUMM (130-400); Red Blood Count 5.33 MC/CUMM (3.8-5.5); Red Cell Distribution Width 14.8 % (9.3-17.3); White Blood Count 17.6 T/CUMM (4-12)
[2017-02-28 11:39] LABS: INR 0.9; PT Patient Result 9.8 SECS; Partial Thromboplastin Time 22.7 SECS (0-40)
[2017-02-28 11:41] LABS: Apearance,Urine Slightly Hazy (Clear); Bilirubin,Urine Negative (Negative); Blood, Urine Negative (Negative); Glucose,Urine (UA) 50 mg/dL (Negative); Granular Casts,Urine 3 /LPF (0-1); Hyaline Casts,Urine 16 /LPF (0-3); Ketones,Urine 80 mg/dL (Negative); Mucus,Urine Many /LPF (Occasional); Nitrite,Urine Negative (Negative); Protein,Urine >=500 MG/DL; RBC,Urine 6 /HPF (0-4); Squamous Epithelial Cell,Urine Occasional /HPF (0-10); Urine Color Yellow (Yellow); Urine Urobilinogen < 2.0 EU/DL (0.2-1.0); WBC,Urine 7 /HPF (0-6)
[2017-02-28] MEDS ORDERED: SUCCINYLCHOLINE 200 MG/10 ML VIAL ONE (11:54)
[2017-02-28] MEDS ORDERED: ETOMIDATE 20 MG/10 ML VIAL IV ONE (11:54)
[2017-02-28] MEDS ORDERED: VECURONIUM 10 MG VIAL IV ONE (11:55)
[2017-02-28] MEDS ORDERED: PROPOFOL 1,000 MG/100 ML BOTTLE IV ONE (11:56)
[2017-02-28 12:00] LABS: Lactic Acid 2.8 MMOL/L (0.4-2.0)
[2017-02-28 12:08] LABS: Barbiturates Screen,Urine Negative (Negative); Benzodiazepines Screen,Urine Positive (Negative); Cannabinoid Screen,Urine Negative (Negative); Opiate Screen,Urine Negative (Negative); Phencyclidine Screen,Urine Negative (Negative)
[2017-02-28 12:11] LABS: Alanine Aminotransferase 18 U/L (13-56); Albumin 4.3 G/DL (3.4-5.0); Alkaline Phosphatase 176 U/L (45-117); Aspartate Amino Transferase 23 U/L (0-37); Bilirubin,Total < 0.39 MG/DL (0.2-1.0); Blood Urea Nitrogen 19 MG/DL (7-18); Calcium 9.8 MG/DL (8.5-10.1); Glucose 160 MG/DL (74-106); Osmolality,Calculated 281.5 MOS/KG (273-304); Potassium 3.8 MMOL/L (3.5-5.1); Sodium 139 MMOL/L (136-145); Total Protein 7.8 G/DL (6.4-8.3)
[2017-02-28 12:54] LABS: Platelet Estimate Normal
[2017-02-28 13:05] LABS: ABG Base Excess -6.1 MMOL/L (-2.5-2.5); ABG HCO3 19.6 MMOL/L (20-26); ABG PH 7.294 (7.35-7.45); ABG TCO2 17.8 MMOL/L (23-27)
[2017-02-28] MEDS ORDERED: SODIUM CHLORIDE 0.9% 1,900 ML IV ONE ×3 (13:05→13:26)
[2017-02-28 13:06] LABS: Pt O2 Delivery Device Ventilator
[2017-02-28] MEDS ORDERED: DEXTROSE 50% 25 GM/50 ML VIAL IV PRN (13:56)
[2017-02-28] MEDS ORDERED: GLUCAGON 1 MG VIAL IM PRN (13:56)
[2017-02-28] MEDS ORDERED: MEROPENEM 1,000 MG VIAL IV ONE (14:04)
[2017-02-28] MEDS: MEROPENEM 1,000 MG in SYRINGE 1 EACH IV SCH (14:09)
[2017-02-28] MEDS: PROPOFOL 1,000 MG/100 ML BOTTLE IV SCH ×2 (14:30→23:06)
[2017-02-28 16:48] LABS: ABG Base Excess -6.3 MMOL/L (-2.5-2.5); ABG HCO3 19.4 MMOL/L (20-26); ABG Oxygen Saturation 99.8 % (95-100); ABG PCO2 40.5 MM HG (35-48); ABG PH 7.299 (7.35-7.45); ABG TCO2 17.6 MMOL/L (23-27)
[2017-02-28] MEDS ORDERED: HYDROmorphone 2 MG/1 ML VIAL IV PRN (17:46)
[2017-02-28] MEDS ORDERED: HYDROmorphone 2 MG/1 ML VIAL IV SCH (18:00)
[2017-02-28] MEDS: INSULIN REGULAR 100 UNIT/ML SUBCUT SCH (18:06)
[2017-02-28] MEDS: SODIUM CHLORIDE 0.9% 1,000 ML IV SCH (20:00)
[2017-02-28] MEDS: HYDROmorphone 2 MG/1 ML VIAL IV PRN (20:30)
[2017-02-28] MEDS ORDERED: SODIUM CHLORIDE 0.9% 1,000 ML IV SCH ×2 (21:30→22:00)
[2017-03-01] MEDS: INSULIN REGULAR 100 UNIT/ML SUBCUT SCH ×4 (00:13→18:26)
[2017-03-01] MEDS: MEROPENEM 1,000 MG in SYRINGE 1 EACH IV SCH ×2 (02:26→13:51)
[2017-03-01 03:27] LABS: Allen Test Positive; Pt O2 Delivery Device Ventilator
[2017-03-01 03:28] LABS: ABG Base Excess -4.6 MMOL/L (-2.5-2.5); ABG HCO3 20.6 MMOL/L (20-26); ABG Oxygen Saturation 99.8 % (95-100); ABG PH 7.381 (7.35-7.45); ABG TCO2 17.2 MMOL/L (23-27)
[2017-03-01] MEDS: PROPOFOL 1,000 MG/100 ML BOTTLE IV SCH ×5 (04:42→21:05)
[2017-03-01 04:56] LABS: Basophils % 0.3 % (0.0-0.8); Eosinophils % 0.1 % (0.00-10.9); Hematocrit 38.4 VOL% (35.7-47.0); Hemoglobin 12.5 GM/DL (12.0-16.0); Immature Granulocytes % 0.3 %; Immature Granulocytes Absolute 0.03 #; Lymphocytes # 1.3 10*3/uL (1.4-4.0); Lymphocytes % 10.9 % (21.3-54.2); Mean Corpuscular HGB Conc 32.6 GM/DL (32-36); Mean Corpuscular Hemoglobin 30 PG (27-34); Mean Corpuscular Volume 92.8 FL (87-102); Mean Platelet Volume 10.4 FL (9.6-12.0); Monocytes # 1.3 10*3/uL (0.11-0.8); Monocytes % 11.6 % (1.7-12.7); Neutrophils # 8.9 10*3/uL (1.4-7.4); Neutrophils % 76.8 % (38.7-73.9); Platelet Count 210 T/CUMM (130-400); Red Blood Count 4.14 MC/CUMM (3.8-5.5); Red Cell Distribution Width 15.2 % (9.3-17.3); White Blood Count 11.6 T/CUMM (4-12)
[2017-03-01 05:33] LABS: Albumin 2.7 G/DL (3.4-5.0); Bilirubin,Total 1.3 MG/DL (0.2-1.0); Calcium 7.7 MG/DL (8.5-10.1); Osmolality,Calculated 298.3 MOS/KG (273-304); Potassium 2.8 MMOL/L (3.5-5.1); Total Protein 5.2 G/DL (6.4-8.3)
[2017-03-01] MEDS: SODIUM CHLORIDE 0.9% 1,000 ML IV SCH ×3 (06:20→21:25)
[2017-03-01] MEDS ORDERED: POTASSIUM CHLORIDE RIDER 10 MEQ in PREMIX 1 EACH IV PRN (06:54)
[2017-03-01] MEDS ORDERED: POTASSIUM CHLORIDE RIDER 20 MEQ in PREMIX 1 EACH IV PRN (06:54)
[2017-03-01] MEDS ORDERED: INFLUENZA VIRUS VACCINE 0.5 ML SYRINGE IM ONE (09:00)
[2017-03-01 09:53] LABS: ABG Base Excess -4.9 MMOL/L (-2.5-2.5); ABG HCO3 20.4 MMOL/L (20-26); ABG Oxygen Saturation 99.1 % (95-100); ABG PH 7.339 (7.35-7.45); ABG TCO2 18.3 MMOL/L (23-27); Pt O2 Delivery Device Ventilator
[2017-03-01] MEDS ORDERED: HALOPERIDOL 5 MG/ML AMP IV SCH (10:36)
[2017-03-01] MEDS: POTASSIUM CHLORIDE 20 MEQ/15 ML UDCUP PER TUBE SCH ×4 (11:04→20:09)
[2017-03-01] MEDS: GABAPENTIN 50 MG/ML 30 ML/BOTTLE PO SCH ×3 (11:05→20:09)
[2017-03-01] MEDS: HYDROmorphone 2 MG/1 ML VIAL IV PRN (20:07)
[2017-03-01] MEDS: HALOPERIDOL 5 MG/ML AMP IV SCH (20:08)
[2017-03-01] MEDS: DONEPEZIL 10 MG TABLET PO SCH (20:09)
[2017-03-02] MEDS: INSULIN REGULAR 100 UNIT/ML SUBCUT SCH ×4 (00:41→18:29)
[2017-03-02] MEDS: POTASSIUM CHLORIDE 20 MEQ/15 ML UDCUP PER TUBE SCH ×2 (00:48→04:30)
[2017-03-02] MEDS: MEROPENEM 1,000 MG in SYRINGE 1 EACH IV SCH ×2 (01:16→15:34)
[2017-03-02] MEDS: HYDROmorphone 2 MG/1 ML VIAL IV PRN ×2 (02:03→21:18)
[2017-03-02] MEDS: PROPOFOL 1,000 MG/100 ML BOTTLE IV SCH ×4 (02:04→21:08)
[2017-03-02 03:41] LABS: ABG Base Excess -2.8 MMOL/L (-2.5-2.5); ABG Oxygen Saturation 98.7 % (95-100); ABG PCO2 38.2 MM HG (35-48); ABG PH 7.378 (7.35-7.45); ABG PO2 167.1 MM HG (80-95); ABG TCO2 23.2 MMOL/L (23-27); Pt O2 Delivery Device Ventilator
[2017-03-02 04:22] LABS: Basophils % 0.4 % (0.0-0.8); Eosinophils # 0.3 10*3/uL (0.0-0.87); Eosinophils % 3.9 % (0.00-10.9); Hemoglobin 10.4 GM/DL (12.0-16.0); Immature Granulocytes % 0.4 %; Immature Granulocytes Absolute 0.03 #; Lymphocytes # 1.4 10*3/uL (1.4-4.0); Lymphocytes % 16.1 % (21.3-54.2); Mean Corpuscular HGB Conc 31.5 GM/DL (32-36); Mean Corpuscular Hemoglobin 30 PG (27-34); Mean Corpuscular Volume 94.3 FL (87-102); Mean Platelet Volume 10.7 FL (9.6-12.0); Monocytes # 0.9 10*3/uL (0.11-0.8); Monocytes % 10.1 % (1.7-12.7); Neutrophils # 5.8 10*3/uL (1.4-7.4); Neutrophils % 69.1 % (38.7-73.9); Platelet Count 148 T/CUMM (130-400); Red Cell Distribution Width 15.6 % (9.3-17.3); White Blood Count 8.4 T/CUMM (4-12)
[2017-03-02] MEDS: SODIUM CHLORIDE 0.9% 1,000 ML IV SCH (04:29)
[2017-03-02 04:53] LABS: Calcium 7.8 MG/DL (8.5-10.1); Magnesium 1.8 MG/DL (1.8-2.4); Osmolality,Calculated 303.9 MOS/KG (273-304); Potassium 3.6 MMOL/L (3.5-5.1)
[2017-03-02 04:58] LABS: Troponin I Only 0.249 NG/ML (0.00-0.045)
[2017-03-02 07:44] LABS: Pt O2 Delivery Device Ventilator
[2017-03-02 07:45] LABS: ABG Base Excess -3.2 MMOL/L (-2.5-2.5); ABG HCO3 21.7 MMOL/L (20-26); ABG Oxygen Saturation 98.1 % (95-100); ABG PCO2 38.6 MM HG (35-48); ABG PH 7.361 (7.35-7.45); ABG PO2 99.6 MM HG (80-95); ABG TCO2 19.7 MMOL/L (23-27)
[2017-03-02] MEDS ORDERED: ALBUTEROL/IPRATROPIUM 3 ML NEB RESP TX STA (09:26)
[2017-03-02] MEDS ORDERED: LABETALOL 20 MG/4 ML SYRINGE IV STA ×2 (09:26→09:59)
[2017-03-02] MEDS ORDERED: ALBUTEROL/IPRATROPIUM 3 ML NEB RESP TX PRN (09:26)
[2017-03-02 09:37] LABS: ABG Base Excess -3.6 MMOL/L (-2.5-2.5); ABG HCO3 21.4 MMOL/L (20-26); ABG Oxygen Saturation 96.7 % (95-100); ABG PCO2 42.8 MM HG (35-48); ABG PH 7.326 (7.35-7.45); ABG PO2 86.9 MM HG (80-95); ABG TCO2 20.1 MMOL/L (23-27)
[2017-03-02] MEDS ORDERED: ALBUTEROL 2.5 MG/3 ML NEB RESP TX STA (09:59)
[2017-03-02] MEDS ORDERED: methylPREDNISolone SOD SUC 125 MG/2 ML VIAL IV STA (09:59)
[2017-03-02] MEDS ORDERED: cloNIDine 0.2 MG/24 HR PATCH TRANSDERM SCH (10:00)
[2017-03-02] MEDS: SODIUM CHLORIDE 0.45% 1,000 ML IV SCH ×2 (10:01→14:31)
[2017-03-02] MEDS ORDERED: methylPREDNISolone SOD SUC 125 MG/2 ML VIAL ONE (10:02)
[2017-03-02] MEDS ORDERED: TERBUTALINE 1 MG/1 ML VIAL SUBCUT ONE (10:03)
[2017-03-02] MEDS: methylPREDNISolone SOD SUC 40 MG/1 ML VIAL IV SCH ×3 (10:28→21:09)
[2017-03-02 10:37] LABS: Pt O2 Delivery Device Venturi Mask
[2017-03-02 10:38] LABS: ABG Base Excess -6.4 MMOL/L (-2.5-2.5); ABG HCO3 19.2 MMOL/L (20-26); ABG Oxygen Saturation 99.1 % (95-100); ABG PCO2 56.2 MM HG (35-48); ABG TCO2 20.4 MMOL/L (23-27)
[2017-03-02 10:39] LABS: ABG PH 7.209 (7.35-7.45)
[2017-03-02] MEDS ORDERED: MIDAZOLAM 2 MG/2 ML VIAL ONE (11:01)
[2017-03-02] MEDS ORDERED: MIDAZOLAM 2 MG/2 ML VIAL IV ONE (11:17)
[2017-03-02] MEDS ORDERED: LIDOCAINE 1% 20 ML VIAL MISC INJ ONE (11:17)
[2017-03-02] MEDS ORDERED: LABETALOL 20 MG/4 ML SYRINGE IV PRN (12:00)
[2017-03-02] MEDS: GABAPENTIN 300 MG CAPSULE PO SCH ×2 (12:18→21:09)
[2017-03-02] MEDS: ASPIRIN EC 81 MG TABLET PO SCH (12:18)
[2017-03-02] MEDS: POTASSIUM CHLORIDE 20 MEQ TABLET PO SCH ×2 (12:18→21:09)
[2017-03-02] MEDS: ALPRAZolam 0.5 MG TABLET PO SCH ×2 (12:18→21:09)
[2017-03-02] MEDS: HALOPERIDOL 5 MG/ML AMP IV SCH ×3 (12:27→21:08)
[2017-03-02] MEDS: ALBUTEROL/IPRATROPIUM 3 ML NEB RESP TX SCH ×2 (12:36→19:50)
[2017-03-02 12:40] LABS: Pt O2 Delivery Device Ventilator
[2017-03-02 12:41] LABS: ABG Base Excess -4.4 MMOL/L (-2.5-2.5); ABG HCO3 20.8 MMOL/L (20-26); ABG Oxygen Saturation 99.7 % (95-100); ABG PCO2 45.7 MM HG (35-48); ABG PH 7.294 (7.35-7.45); ABG TCO2 20.1 MMOL/L (23-27)
[2017-03-02] MEDS: DONEPEZIL 10 MG TABLET PO SCH (21:09)
[2017-03-03] MEDS: INSULIN REGULAR 100 UNIT/ML SUBCUT SCH ×4 (00:08→18:20)
[2017-03-03] MEDS: ALBUTEROL/IPRATROPIUM 3 ML NEB RESP TX SCH ×4 (00:50→21:04)
[2017-03-03] MEDS: PROPOFOL 1,000 MG/100 ML BOTTLE IV SCH ×5 (01:34→17:00)
[2017-03-03] MEDS: MEROPENEM 1,000 MG in SYRINGE 1 EACH IV SCH ×2 (01:40→14:50)
[2017-03-03 03:50] LABS: ABG Base Excess -2.7 MMOL/L (-2.5-2.5); ABG HCO3 22.2 MMOL/L (20-26); ABG Oxygen Saturation 99.7 % (95-100); ABG PCO2 42.3 MM HG (35-48); ABG PH 7.343 (7.35-7.45); ABG TCO2 20.8 MMOL/L (23-27)
[2017-03-03] MEDS: methylPREDNISolone SOD SUC 40 MG/1 ML VIAL IV SCH ×4 (03:51→21:38)
[2017-03-03] MEDS: SODIUM CHLORIDE 0.45% 1,000 ML IV SCH ×3 (03:52→16:10)
[2017-03-03] MEDS: HYDROmorphone 2 MG/1 ML VIAL IV PRN ×2 (04:06→18:09)
[2017-03-03 04:43] LABS: Basophils % 0.1 % (0.0-0.8); Hematocrit 33.6 VOL% (35.7-47.0); Hemoglobin 10.9 GM/DL (12.0-16.0); Immature Granulocytes % 0.4 %; Immature Granulocytes Absolute 0.03 #; Lymphocytes # 0.5 10*3/uL (1.4-4.0); Lymphocytes % 6.7 % (21.3-54.2); Mean Corpuscular HGB Conc 32.4 GM/DL (32-36); Mean Corpuscular Hemoglobin 30 PG (27-34); Mean Corpuscular Volume 93.6 FL (87-102); Mean Platelet Volume 10.9 FL (9.6-12.0); Monocytes # 0.1 10*3/uL (0.11-0.8); Monocytes % 2.1 % (1.7-12.7); Neutrophils # 6.1 10*3/uL (1.4-7.4); Neutrophils % 90.7 % (38.7-73.9); Platelet Count 171 T/CUMM (130-400); Red Blood Count 3.59 MC/CUMM (3.8-5.5); Red Cell Distribution Width 15.7 % (9.3-17.3); White Blood Count 6.7 T/CUMM (4-12)
[2017-03-03 05:12] LABS: Calcium 8.1 MG/DL (8.5-10.1); Magnesium 1.8 MG/DL (1.8-2.4); Osmolality,Calculated 299.3 MOS/KG (273-304); Potassium 4.6 MMOL/L (3.5-5.1)
[2017-03-03 07:27] LABS: Band Neutrophils 5 % (0-10); Hypochromasia Slight; Lymphocytes 5 % (20-55); Ovalocytes Slight; Platelet Estimate Adequate; Segmented Neutrophils 89 % (50-85); Total Cells Counted 100
[2017-03-03 07:28] LABS: Microcytosis 1+
[2017-03-03] MEDS: HALOPERIDOL 5 MG/ML AMP IV SCH ×2 (08:53→21:43)
[2017-03-03] MEDS: POTASSIUM CHLORIDE 20 MEQ TABLET PO SCH ×2 (08:53→21:37)
[2017-03-03] MEDS: ALPRAZolam 0.5 MG TABLET PO SCH ×2 (08:54→21:37)
[2017-03-03] MEDS: GABAPENTIN 300 MG CAPSULE PO SCH ×2 (08:54→21:37)
[2017-03-03] MEDS: ASPIRIN EC 81 MG TABLET PO SCH (08:54)
[2017-03-03] MEDS: DONEPEZIL 10 MG TABLET PO SCH (21:37)
[2017-03-04] MEDS: PROPOFOL 1,000 MG/100 ML BOTTLE IV SCH ×2 (00:03→12:13)
[2017-03-04] MEDS: ALBUTEROL/IPRATROPIUM 3 ML NEB RESP TX SCH ×3 (00:17→12:55)
[2017-03-04] MEDS: INSULIN REGULAR 100 UNIT/ML SUBCUT SCH ×3 (00:41→12:13)
[2017-03-04] MEDS: MEROPENEM 1,000 MG in SYRINGE 1 EACH IV SCH (10:24)
[2017-03-04] MEDS: ALPRAZolam 0.5 MG TABLET PO SCH (10:25)
[2017-03-04] MEDS: GABAPENTIN 300 MG CAPSULE PO SCH (10:25)
[2017-03-04] MEDS: POTASSIUM CHLORIDE 20 MEQ TABLET PO SCH (10:25)
[2017-03-04] MEDS: HALOPERIDOL 5 MG/ML AMP IV SCH (10:26)
[2017-03-04] MEDS: methylPREDNISolone SOD SUC 40 MG/1 ML VIAL IV SCH (10:26)
[2017-03-04] MEDS: ASPIRIN EC 81 MG TABLET PO SCH (10:28)
[2017-03-04 10:54] LABS: ABG Base Excess -0.7 MMOL/L (-2.5-2.5); ABG HCO3 23.8 MMOL/L (20-26); ABG Oxygen Saturation 99.9 % (95-100); ABG PH 7.396 (7.35-7.45); ABG TCO2 21.6 MMOL/L (23-27)
[2017-03-04] MEDS ORDERED: MEROPENEM 1,000 MG in SYRINGE 1 EACH IV SCH (11:00)
[2017-03-04] MEDS: HYDROmorphone 2 MG/1 ML VIAL IV PRN (13:10)
[2017-03-04 14:03] VITALS: BP 117/77
[2017-03-04] MEDS ORDERED: INFLUENZA VIRUS VACCINE 0.5 ML SYRINGE IM ONE (14:30)
== END 2017-03-04 14:45 | DRG 871 ==
LOC: EDBD → EDUNIT# → N.ED 10:14 → N.EDINP 13:03 → SUATTDRO 13:03 → N.ICU 14:08
PROVIDERS: ADMIT Internal Medicine; ATTEND Internal Medicine